=== PATIENT | male | born 1955 | race Caucasian/White ===

== ENCOUNTER 2023-07-12 09:59 | Emergency (ER) | payer OTHER ==
--- OUTSIDE RECORDS SUMMARY | 2023-07-12 10:03 | XMS REPORT | Continuity of Care Document ---
:1955 Author Organization [facility] t Address [address] [place] [address] Care Team Providers Name Role Phone Jeb Garcia Attending Clinician Unavailable UNKNOWN Attending Clinician Unavailable Hawa Britt Cardiology Attending Clinician Unavailable Jeb Garcia Admitting Clinician Unavailable Panchito Nunes Admitting Clinician Unavailable Payers Payer Name Policy Type Policy Number Effective Date Expiration Date S ource Problems This patient has no known problems. Allergies, Adverse Reactions, Alerts Allergy Allergy Status Severity Reaction(s) Onset Inactive Treating Comm ents Source Name Type Date Date Clinician Statins- DA Active U MUSCLE PAIN [facility] 07-02 [place] [facility] 00:00: Healthc e 00 are Inhibito [facility] Statins- DA Active [place] MUSCLE PAIN [facility] 06-29 [place] Reduct[facility] 00:00: [facility]c e 00 are [facility] Statins- DA Active U muscle ache [facility] 05-29 [place] Reductas 00:00: d e 00 [facility] Statins- DA Active U muscle ache [facility] 05-26 [place] Reduct[place] 00:00: d e 00 [facility] r Medications This patient has no known medications. Procedures Procedure Date / Time Performed Performing Clinician [facility] jocelynn [id number] 2023-07-01 00:00:00 PHIL [facility] [id number] 2023-07-01 00:00:00 PHIL [facility] [id number] 2023-07-01 00:00:00 POREY [facility] [id number] 2023-07-01 00:00:00 PHIL [facility] [id number] 2023-07-01 00:00:00 PHIL [facility] [id number] 2023-07-01 00:00:00 POREY [facility] [id number] 2023-07-01 00:00:00 PHIL [facility] [id number] 2023-07-01 00:00:00 PHIL [facility] [id number] 2023-07-[facility] Start End Encounter Admission Attending Care Care Encounter Source Date/Time Date/Time Type Type Clinicians Facility Department ID 2023-06-29 2023-07-07 Inpatient EL Jeb Garcia [facility] CARDIAC [id number] [facility] 09:47:00 14:28:00 18 [facility] 2023-06-29 2023-06-29 Outpatient Jeb Garcia [facility] REF [id number] [facility] 11:38:00 11:38:00 93 [facility] Results Test Description Test Time Test Comments Results Result Comments Source GLUBED 2023-07-07 11:20:00 Test Item Value Reference Range Interpretation Comme nts GLUBED (test code = GLUBED) 273 MG/DL 70-105 H [id number] 07:32:00 Test Item Value Reference Range Interpretation Comments GLUBED (test code = GLUBED) 169 MG/DL 70-105 H [id number] 17:33:00 Test Item Value Reference Range Interpretation Comments GLUBED (test code = GLUBED) 144 MG/DL 70-105 H [id number] 11:36:00 Test Item Value Reference Range Interpretation Comments GLUBED (test code = GLUBED) 203 MG/DL 70-105 H COMPREHENSIVE METABOLIC [id number] 10:52:00 Test Item Value Reference Range Interpretation Comments SODIUM (test code 136 mmol/L 136-145 N = NA) POTASSIUM (test 3.6 mmol/L 3.5-5.1 N code = K) CHLORIDE (test 101 mmol/l 98-107 N code = CL) CARBON DIOXIDE 29 mmol/L 20-31 N (test code = CO2) GLUCOSE (test code 227 mg/dL 74-106 H = GLU) BLOOD UREA 9 mg/dL 9-23 N NITROGEN (test code = BUN) GLOMERULAR >=60 max >60 The Glomerular FILTRATION RATE estimate mL/min Filtratio n Rate is a (test code = GFR) calculated parameterbased on serum Creatinin e, patient age and sex. GFR valuesless than 60 mL/min/1.73 square meters are brenda cative ofChronic Kidne y Disease. Values less than 15 mL/min/1.73squa re meters indicate Kidney failure. The calculation for GFR is based on the CK D-EPI (2020) calculat ion. This formulais race indifferent and is the recommended formula for GFR by the National Kidney Foundation for Adults.The GFR will not calculate i f the sex is unknown or if thepatient's ag e is <18 years. CREATININE (test 0.70 mg/dL 0.70-1.30 N code = CREAT) TOTAL PROTEIN 5.7 g/dL 5.7-8.2 N (test code = PROT) ALBUMIN (test code 3.9 g/dL 3.2-4.8 N = ALB) CALCIUM (test code 8.6 mg/dL 8.7-10.4 L = CA) BILIRUBIN TOTAL 0.4 mg/dL 0.3-1.2 N (test code = BILT) SGOT/AST (test 28 U/L <34 N code = AST) SGPT/ALT (test 23 U/L 10-49 N code = ALT) ALKALINE 77.0 U/L 46-116 N PHOSPHATASE (test code = ALKP) HGBA1C - GLYCOSYLATED [id number] 10:52:00 Test Item Value Reference Range Interpretation Comments GLYCOSYLATED HEMOGLOBIN 6.2 % <5.7 H Diab etic >/= (HA1C) (test code = 6.5%Pred iabetes GLYHGB) 5.7-6.4%Normal < 5.7% CBC W/AUTO [id number] 10:27:00 Test Item Value Reference Range Interpretation Comments WHITE BLOOD CELL (test code = 5.1 x10 3/uL 4.8-10.8 N WBC) RED BLOOD CELL (test code = 2.64 x10 6/uL 4.70-6.10 L RBC) HEMOGLOBIN (test code = HGB) 7.9 g/dL 14.0-18.0 L HEMATOCRIT (test code = HCT) 24.1 % 42.0-52.0 L MEAN CELL VOLUME (test code = 91.3 fL 80.0-94.0 N MCV) MEAN CELL HGB (test code = MCH) 29.9 pg 27-31 N MEAN CELL HGB CONCENTRATION 32.8 G/DL 33-36.5 L (test code = MCHC) RED CELL DISTRIBUTION WIDTH 13.6 % 12.9-16.9 N (test code = RDW) PLATELET COUNT (test code = 176 x10 3/uL 150-440 N PLT) MEAN PLATELET VOLUME (test code 10.4 fL 8.9-12.4 N = MPV) NEUTROPHIL % (test code = NT%) 66.7 % 42.2-75.2 N LYMPHOCYTE % (test code = LY%) 17.7 % 20.5-51.1 L MONOCYTE % (test code = MO%) 10.4 % 1.7-9.3 H EOSINOPHIL % (test code = EO%) 2.4 % 0.0-7.0 N BASOPHIL % (test code = BA%) 1.0 % 0-2.5 N NEUTROPHIL # (test code = NT#) 3.39 x10 3/uL 1.80-7.70 N LYMPHOCYTE # (test code = LY#) 0.90 x10 3/uL 1.00-4.80 L MONOCYTE # (test code = MO#) 0.53 x10 3/uL 0.00-0.80 N EOSINOPHIL # (test code = EO#) 0.12 x10 3/uL 0.00-0.45 N BASOPHIL # (test code = BA#) 0.05 x10 3/uL 0.0-0.20 N [id number] 21:06:00 Test Item Value Reference Range Interpretation Comments GLUBED (test code = GLUBED) 208 MG/DL 70-105 H [id number] 11:15:00 Test Item Value Reference Range Interpretation Comments GLUBED (test code = GLUBED) 182 MG/DL 70-105 H [id number] 08:00:00 Test Item Value Reference Range Interpretation Comments GLUBED (test code = GLUBED) 161 MG/DL 70-105 H - XR CHEST 1 [id number] 07:10:00 [facility] 1955 Sex: MPatient Name: ARIADNA MADRIGAL Unit No: [id number] EXAMS: CPT CODE: [id number] XR CHEST 1 V 50180 EXAM: Chest x-ray, 1 view Dictation location: A1 COMPARISON: Chest x-ray on 07/04/2023 INDICATION: PROTOCOL, aortic stenosis, coronary artery disease DISCUSSION: Prior median sternotomy and aortic valve replacement are noted. There is improving left retrocardiac consolidation and linear opacity at the medial right lung base. No pneumothorax is seen. There is a questionable small left pleural effusion, slightly improved. No pneumothorax is seen. No acute bony abnormalities are identified. IMPRESSION: 1. Improving left retrocardiac atelectasis or pneumonia. Linear atelectasis is seen at the right lung base. 2. Questionable small left pleural effusion, slightly improved. at 0710 Reported and signed by: Michael Ryan M.D. CC: Jeb Garcia MD; Terrence Cardoza MD Technologist: Javi Condon Time: DAP (Gy m2): Air Kerma (mGy): Trscr Dt/Tm: 07/05/2023 (0710) by:[email or web address] Printed Date/Time: 07/05/2023 (0712) Name: ARIADNA MADRIGAL [facility] Phys: Terrence Cole MD [address] : 1955 Age: 67 Sex: [place] [address] Loc: P.0307 1 Exam Date: 07/05/2023 Status: ADM IN PH: FAX: PAGE 1 Signed ReportCBC W/MANUAL [id number] 05:00:00 Test Item Value Reference Range Interpretation Comments WHITE BLOOD CELL 5.4 x10 3/uL 4.8-10.8 N (test code = WBC) RED BLOOD CELL (test 2.44 x10 6/uL 4.70-6.10 L code = RBC) HEMOGLOBIN (test 7.4 g/dL 14.0-18.0 L code = HGB) HEMATOCRIT (test 21.4 % 42.0-52.0 L code = HCT) MEAN CELL VOLUME 87.7 fL 80.0-94.0 N (test code = MCV) MEAN CELL HGB (test 30.3 pg 27-31 N code = MCH) MEAN CELL HGB 34.6 G/DL 33-36.5 N CONCENTRATION (test code = MCHC) RED CELL 13.4 % 12.9-16.9 N DISTRIBUTION WIDTH (test code = RDW) PLATELET COUNT (test 106 x10 3/uL 150-440 L code = PLT) MEAN PLATELET VOLUME 11.5 fL 8.9-12.4 N (test code = MPV) NEUTROPHIL % (test 67.4 % 42.2-75.2 N code = NT%) LYMPHOCYTE % (test 20.6 % 20.5-51.1 N code = LY%) MONOCYTE % (test 8.8 % 1.7-9.3 N code = MO%) EOSINOPHIL % (test 1.3 % 0.0-7.0 N code = EO%) BASOPHIL % (test 0.6 % 0-2.5 N code = BA%) NEUTROPHIL # (test 3.67 x10 3/uL 1.80-7.70 N code = NT#) LYMPHOCYTE # (test 1.12 x10 3/uL 1.00-4.80 N code = LY#) MONOCYTE # (test 0.48 x10 3/uL 0.00-0.80 N code = MO#) EOSINOPHIL # (test 0.07 x10 3/uL 0.00-0.45 N code = EO#) BASOPHIL # (test 0.03 x10 3/uL 0.0-0.20 N code = BA#) TOTAL CELLS COUNTED 100 #CELLS (test code = TCC) SEGMENTED 72 % 49-71 H `@MANUAL NEUTROPHILS (test DIFFERENTI AL code = SEG) PERFORMED LYMPHOCYTE (test 25 % 20-40 N code = LYMPH) MONOCYTE (test code 3 % 3-8 N = MON) PLATELET ESTIMATE SLIGHTLY ADEQUATE A (test code = PLTEST) DECREASED PLATELET MORPHOLOGY GIANT PLATELETS NORMAL (test code = PLTMORPH) DIFFERENTIAL [id number] 05:00:00 Test Item Value Reference Range Interpretation Comments RBC MORPHOLOGY REQUIRED (test code = NORMAL RBCM) BASIC METABOLIC [id number] 04:19:00 Test Item Value Reference Range Interpretation Comments SODIUM (test code 135 mmol/L 136-145 L = NA) POTASSIUM (test 4.0 mmol/L 3.5-5.1 N code = K) CHLORIDE (test 101 mmol/l 98-107 N code = CL) CARBON DIOXIDE 28 mmol/L 20-31 N (test code = CO2) GLUCOSE (test code 136 mg/dL 74-106 H = GLU) BLOOD UREA 8 mg/dL 9-23 L NITROGEN (test code = BUN) GLOMERULAR >=60 max >60 The Glomerular FILTRATION RATE estimate mL/min Filtratio n Rate is a (test code = GFR) calculated parameterbased on serum Creatinin e, patient age and sex. GFR valuesless than 60 mL/min/1.73 square meters are brenda cative ofChronic Kidne y Disease. Values less than 15 mL/min/1.73squa re meters indicate Kidney failure. The calculation for GFR is based on the CK D-EPI (2020) calculat ion. This formulais race indifferent and is the recommended formula for GFR by the National Kidney Foundation for Adults.The GFR will not calculate i f the sex is unknown or if thepatient's ag e is <18 years. CREATININE (test 0.40 mg/dL 0.70-1.30 L code = CREAT) CALCIUM (test code 8.3 mg/dL 8.7-10.4 L = CA) [id number] 04:19:00 Test Item Value Reference Range Interpretation Comments PHOSPHOROUS (test code = PHOS) 2.5 mg/dL 2.4-5.1 N [id number] 04:19:00 Test Item Value Reference Range Interpretation Comments MAGNESIUM (test code = MAG) 1.9 mg/dL 1.6-2.6 N VENOUS BLOOD [id number] 00:55:00 Test Item Value Reference Range Interpretation Comments VENOUS BLOOD GAS PH 7.34 7.35-7.45 L (test code = PHV) VENOUS BLOOD GAS 49.2 mmHg See_Comment [Automated message] The PCO2 (test code = system [facility] generated PCO2V) this result tra nsmitted reference range : 46. The reference range was not used to interpr et this result as normal/abnormal . VENOUS BLOOD GAS 21.2 mmHg See_Comment [Automated message] The PO2 (test code = system [facility] generated PO2V) this result tra nsmitted reference range : 40. The reference range was not used to interpr et this result as normal/abnormal . VBG HCO3 (test code 26 meq/L = HCO3V) VBG BASE EXCESS 0.0 MMOL/L (test code = YARELY) VENOUS BLOOD GAS O2 32 % See_Comment [Automa arik message] The SAT (test code = system [facility] generated O2SATV) this result tra nsmitted reference range : 75. The reference range was not used to interpr et this result as normal/abnormal . VENOUS BLOOD GAS Venous TYPE (test code = TYPEV) VENOUS BLOOD GAS 32.0 % FIO2 (test code = FIO2V) VBG VENT MODE (test 2 L NC code = MODEV) [id number] 21:06:00 Test Item Value Reference Range Interpretation Comments GLUBED (test code = GLUBED) 216 MG/DL 70-105 H [id number] 17:45:00 Test Item Value Reference Range Interpretation Comments GLUBED (test code = GLUBED) 155 MG/DL 70-105 H [id number] 12:08:00 Test Item Value Reference Range Interpretation Comments GLUBED (test code = GLUBED) 205 MG/DL 70-105 H [id number] 08:53:00 Test Item Value Reference Range Interpretation Comments GLUBED (test code = GLUBED) 241 MG/DL 70-105 H - XR CHEST 1 [id number] 07:14:00 [facility] 1955 Sex: MPatient Name: ARIADNA MADRIGAL Unit No: [id number] EXAMS: CPT CODE: [id number] XR CHEST 1 V 24599 EXAM: Chest x-ray, 1 view Dictation location: A1 COMPARISON: Chest x-ray on 07/03/2023 INDICATION:PROTOCOL, aortic stenosis, coronary artery disease DISCUSSION: There has been previous median sternotomy and aortic valve replacement. Left greater than right bibasilar consolidation appears similar. A small left pleural effusion appears increased. Chest tubes have been removed. No pneumothorax is seen. The cardiac silhouette is within normal limits. No acute bony abnormalities are identified. IMPRESSION: Interval removal of chest tubes. Left greater than right bibasilar consolidation appears similar and suggests atelectasis or less likely pneumonia. A small left pleural effusion appears increased. at 0714 Reported and signed by: Michael Ryan M.D. CC: Jeb Garcia MD; Terrence Cardoza MD Technologist: Javi Condon Time: DAP (Gy m2): Air Kerma (mGy): Trscr Dt/Tm: 07/04/2023 (0714) by:[email or web address] Printed Date/Time: 07/04/2023 (0768) Name: ARIADNA MADRIGAL [facility] Phys: Terrence Cole MD [address] :1955 Age: 67 Sex: [place] [address] Loc: P.0307 1 Exam Date: 07/04/2023 Status: ADM IN PH: FAX: PAGE 1 Signed ReportCOMPREHENSIVE METABOLIC [id number] 05:09:00 Test Item Value Reference Range Interpretation Comments SODIUM (test code 132 mmol/L 136-145 L = NA) POTASSIUM (test 4.5 mmol/L 3.5-5.1 N code = K) CHLORIDE (test 101 mmol/l 98-107 N code = CL) CARBON DIOXIDE 28 mmol/L 20-31 N (test code = CO2) GLUCOSE (test code 182 mg/dL 74-106 H = GLU) BLOOD UREA 6 mg/dL 9-23 L NITROGEN (test code = BUN) GLOMERULAR >=60 max >60 The Glomerular FILTRATION RATE estimate mL/min Filtratio n Rate is a (test code = GFR) calculated parameterbased on serum Creatinin e, patient age and sex. GFR valuesless than 60 mL/min/1.73 square meters are brenda cative ofChronic Kidne y Disease. Values less than 15 mL/min/1.73squa re meters indicate Kidney failure. The calculation for GFR is based on the CK D-EPI (2020) calculat ion. This formulais race indifferent and is the recommended formula for GFR by the National Kidney Foundation for Adults.The GFR will not calculate i f the sex is unknown or if thepatient's ag e is <18 years. CREATININE (test 0.60 mg/dL 0.70-1.30 L code = CREAT) TOTAL PROTEIN 5.9 g/dL 5.7-8.2 N (test code = PROT) ALBUMIN (test code 3.9 g/dL 3.2-4.8 N = ALB) CALCIUM (test code 8.1 mg/dL 8.7-10.4 L = CA) BILIRUBIN TOTAL 0.4 mg/dL 0.3-1.2 N (test code = BILT) SGOT/AST (test 38 U/L <34 H code = AST) SGPT/ALT (test 24 U/L 10-49 N code = ALT) ALKALINE 59.0 U/L 46-116 N PHOSPHATASE (test code = ALKP) [id number] 05:09:00 Test Item Value Reference Range Interpretation Comments PHOSPHOROUS (test code = PHOS) 2.7 mg/dL 2.4-5.1 N [id number] 05:09:00 Test Item Value Reference Range Interpretation Comments MAGNESIUM (test code = MAG) 2.0 mg/dL 1.6-2.6 N CBC W/AUTO [id number] 04:48:00 Test Item Value Reference Range Interpretation Comments WHITE BLOOD CELL (test code = 7.3 x10 3/uL 4.8-10.8 N WBC) RED BLOOD CELL (test code = 2.40 x10 6/uL 4.70-6.10 L RBC) HEMOGLOBIN (test code = HGB) 7.4 g/dL 14.0-18.0 L HEMATOCRIT (test code = HCT) 21.8 % 42.0-52.0 L MEAN CELL VOLUME (test code = 90.8 fL 80.0-94.0 N MCV) MEAN CELL HGB (test code = MCH) 30.8 pg 27-31 N MEAN CELL HGB CONCENTRATION 33.9 G/DL 33-36.5 N (test code = MCHC) RED CELL DISTRIBUTION WIDTH 13.3 % 12.9-16.9 N (test code = RDW) PLATELET COUNT (test code = 103 x10 3/uL 150-440 L PLT) MEAN PLATELET VOLUME (test code 10.9 fL 8.9-12.4 N = MPV) NEUTROPHIL % (test code = NT%) 71.0 % 42.2-75.2 N LYMPHOCYTE % (test code = LY%) 21.1 % 20.5-51.1 N MONOCYTE % (test code = MO%) 6.3 % 1.7-9.3 N EOSINOPHIL % (test code = EO%) 0.5 % 0.0-7.0 N BASOPHIL % (test code = BA%) 0.4 % 0-2.5 N NEUTROPHIL # (test code = NT#) 5.21 x10 3/uL 1.80-7.70 N LYMPHOCYTE # (test code = LY#) 1.55 x10 3/uL 1.00-4.80 N MONOCYTE # (test code = MO#) 0.46 x10 3/uL 0.00-0.80 N EOSINOPHIL # (test code = EO#) 0.04 x10 3/uL 0.00-0.45 N BASOPHIL # (test code = BA#) 0.03 x10 3/uL 0.0-0.20 N BASIC METABOLIC [id number] 22:46:00 Test Item Value Reference Range Interpretation Comments SODIUM (test code 131 mmol/L 136-145 L = NA) POTASSIUM (test 4.2 mmol/L 3.5-5.1 N code = K) CHLORIDE (test 99 mmol/l 98-107 N code = CL) CARBON DIOXIDE 27 mmol/L 20-31 N (test code = CO2) GLUCOSE (test code 169 mg/dL 74-106 H = GLU) BLOOD UREA 7 mg/dL 9-23 L NITROGEN (test code = BUN) GLOMERULAR >=60 max >60 The Glomerular FILTRATION RATE estimate mL/min Filtratio n Rate is a (test code = GFR) calculated parameterbased on serum Creatinin e, patient age and sex. GFR valuesless than 60 mL/min/1.73 square meters are brenda cative ofChronic Kidne y Disease. Values less than 15 mL/min/1.73squa re meters indicate Kidney failure. The calculation for GFR is based on the CK D-EPI (2020) calculat ion. This formulais race indifferent and is the recommended formula for GFR by the National Kidney Foundation for Adults.The GFR will not calculate i f the sex is unknown or if thepatient's ag e is <18 years. CREATININE (test 0.60 mg/dL 0.70-1.30 L code = CREAT) CALCIUM (test code 8.3 mg/dL 8.7-10.4 L = CA) CBC W/AUTO [id number] 19:00:00 Test Item Value Reference Range Interpretation Comments WHITE BLOOD CELL (test code = 9.9 x10 3/uL 4.8-10.8 N WBC) RED BLOOD CELL (test code = 2.46 x10 6/uL 4.70-6.10 L RBC) HEMOGLOBIN (test code = HGB) 7.5 g/dL 14.0-18.0 L HEMATOCRIT (test code = HCT) 22.3 % 42.0-52.0 L MEAN CELL VOLUME (test code = 90.7 fL 80.0-94.0 N MCV) MEAN CELL HGB (test code = MCH) 30.5 pg 27-31 N MEAN CELL HGB CONCENTRATION 33.6 G/DL 33-36.5 N (test code = MCHC) RED CELL DISTRIBUTION WIDTH 13.4 % 12.9-16.9 N (test code = RDW) PLATELET COUNT (test code = 101 x10 3/uL 150-440 L PLT) MEAN PLATELET VOLUME (test code 11.0 fL 8.9-12.4 N = MPV) NEUTROPHIL % (test code = NT%) 76.9 % 42.2-75.2 H LYMPHOCYTE % (test code = LY%) 15.5 % 20.5-51.1 L MONOCYTE % (test code = MO%) 6.4 % 1.7-9.3 N EOSINOPHIL % (test code = EO%) 0.4 % 0.0-7.0 N BASOPHIL % (test code = BA%) 0.3 % 0-2.5 N NEUTROPHIL # (test code = NT#) 7.61 x10 3/uL 1.80-7.70 N LYMPHOCYTE # (test code = LY#) 1.53 x10 3/uL 1.00-4.80 N MONOCYTE # (test code = MO#) 0.63 x10 3/uL 0.00-0.80 N EOSINOPHIL # (test code = EO#) 0.04 x10 3/uL 0.00-0.45 N BASOPHIL # (test code = BA#) 0.03 x10 3/uL 0.0-0.20 N CLOTTED CALLED TO VIMAL CERDA @1825 ON 17-14-30BCGCC METABOLIC [id number] 18:51:00 Test Item Value Reference Range Interpretation Comments SODIUM (test code 127 mmol/L 136-145 L = NA) POTASSIUM (test 4.9 mmol/L 3.5-5.1 N code = K) CHLORIDE (test 98 mmol/l 98-107 N code = CL) CARBON DIOXIDE 26 mmol/L 20-31 N (test code = CO2) GLUCOSE (test code 138 mg/dL 74-106 H = GLU) BLOOD UREA 6 mg/dL 9-23 L NITROGEN (test code = BUN) GLOMERULAR >=60 max >60 The Glomerular FILTRATION RATE estimate mL/min Filtratio n Rate is a (test code = GFR) calculated parameterbased on serum Creatinin e, patient age and sex. GFR valuesless than 60 mL/min/1.73 square meters are brenda cative ofChronic Kidne y Disease. Values less than 15 mL/min/1.73squa re meters indicate Kidney failure. The calculation for GFR is based on the CK D-EPI (2020) calculat ion. This formulais race indifferent and is the recommended formula for GFR by the National Kidney Foundation for Adults.The GFR will not calculate i f the sex is unknown or if thepatient's ag e is <18 years. CREATININE (test 0.50 mg/dL 0.70-1.30 L code = CREAT) CALCIUM (test code 7.7 mg/dL 8.7-10.4 L = CA) [id number] 18:51:00 Test Item Value Reference Range Interpretation Comments PHOSPHOROUS (test code = PHOS) 2.2 mg/dL 2.4-5.1 L [id number] 18:51:00 Test Item Value Reference Range Interpretation Comments MAGNESIUM (test code = MAG) 1.9 mg/dL 1.6-2.6 N [id number] 17:40:00 Test Item Value Reference Range Interpretation Comments GLUBED (test code = GLUBED) 148 MG/DL 70-105 H [id number] 13:59:00 Test Item Value Reference Range Interpretation Comments SURGICAL (test code = SR) RUN DATE: 07/03/23 [facility] - LAB PAGE 1 RUN TIME: 1359 Specimen Inquiry RUN USER: INTERFACE NAHUN ENT: ARIADNA MADRIGAL TIMBO LOC: Starla Bloom U #: [id number] AGE/SX: 67/M ROOM: [facility] RE06/29/23REG DR: Jeb Garcia MD : 53 BED: 1 DIS: STATUS: ADM IN TLOC: SPEC #: [id number] RECD: 07/01/23 STATUS: ROSIO REQ #: [id number] LILO: 07/01/23-[address]: Jeb Garcia MD ENTERED: 07/01/23 SP TYPE: SURGICAL OTHR DR: DOES_NOT KNOW Mark Boateng MDORDERED: 16258/2, 92617, ANATOMIC SPEC HISTOLOGY: TISSUE ID BLK PCS ESME LEV / PROCEDURE DISPOSITION ____ ___ ___ ___ ___ AOR A 2 1 AOR B 1 1 TISSUES: A. AORTA - Aorta B. AORTA - Aortic Valve Leaflets FINAL DIAGNOSIS A. AORTA, EXCISION: - Vascular tissue with degenerative changes - Cholesterol clefts and changes consistent with early atheroscleroses B. AORTIC VALVE LEAFLETS, EXCISION: - Degenerative fibrous tissue with calcific atherosclerotic plaques GROSS DESCRIPTION A. Received in formalin in a container labeled Ariadna Madrigal and also" aorta" are multiplefragments of yellow-ojeda vascular tissue, the largest of which is 12 x 5 x 0.3 cm. Senior Marketing Manager sections are submitted in cassettes A 1 and A2. B. Received in formalin container labeled Ariadna Madrigal and also "aortic valve leaflets" aremultiple fragments of white and yellow-ojeda partially calcified valvular tissue, measuringin aggregate 5 x 4.3 x 1.5 cm. Senior Marketing Manager sections are submitted cassette B afterdecalcification. AW Technical component performed at [facility], [place], [address] Immunohistochemistry: This test was developed and its performancecharacteristics determined by this laboratory. It has not been approved nordoes it need approval by the [place] FDA. Appropriate positive and negative controlsare reviewed and judged to be acceptable. This laboratory is certified underthe Clinical Laboratory Improvement Amendments (CLIA-88) as qualified to CONTINUED ON NEXT PAGE RUN DATE: 07/03/23 [facility] - LAB PAGE 2 RUN TIME: 1359 Specimen Inquiry RUN USER: INTERFACE SPEC #: [id number] PATIENT: ARIADNA MADRIGAL #[id number] (Continued) ------- GROSS DESCRIPTION (Continued) perform high complexity clinical laboratory testing. MICROSCOPIC DESCRIPTION Unless gross only, the diagnosis is based upon microscopic examination. CLINICAL INFORMATION Coronary Artery Disease Signed SIGNATURE ON FILE Mónica Toledo 07/03/23 1359 END OF REPORT [id number] 12:30:00 Test Item Value Reference Range Interpretation Comments GLUBED (test code = GLUBED) 194 MG/DL 70-105 H [id number] 09:06:00 Test Item Value Reference Range Interpretation Comments GLUBED (test code = GLUBED) 156 MG/DL 70-105 H - XR CHEST 1 [id number] 09:06:00 [facility] 1955 Sex: MPatient Name: ARIADNA MADRIGAL Unit No: [id number] EXAMS: CPT CODE: [id number] XR CHEST 1 V [id number] EXAM: XR Chest 1 View INDICATION: ICU PROTOCOL LOCATION: A1 COMPARISON: Chest radiograph dated 06/24/2023 TECHNIQUE: Frontal view of the chest was obtained. FINDINGS: Pulmonary arterial catheter has been removed. Other life support lines and tubes are in unchanged position. Pulmonary vascular congestion is similar to prior. There is no pleural effusion or pneumothorax. The cardiomediastinal silhouette is unchanged. No acute osseous abnormality is identified. IMPRESSION: Interval removal of pulmonary arterial catheter, otherwise unchanged radiograph. at 0906 Reported and signed by: PEEWEE AMBROSE M.D. CC: Annette Andre MD; Jeb Garcia MD Technologist: Javi Condon Time: DAP (Gy m2): Air Kerma (mGy): Trscr Dt/Tm: 07/03/2023 (09) by:[email or web address] Printed Date/Time: 07/03/2023 (0909) Name: DENISAARIADNA IZQUIERDO [facility] Phys: Annette Looney [address] : 1955 Age: 67 Sex: [place] [address] Loc: [phone] 1 Exam Date: 07/03/2023 Status: ADM IN PH: FAX: PAGE 1 Signed ReportBASIC METABOLIC [id number] 03:59:00 Test Item Value Reference Range Interpretation Comments SODIUM (test code 131 mmol/L 136-145 L = NA) POTASSIUM (test 4.4 mmol/L 3.5-5.1 N code = K) CHLORIDE (test 102 mmol/l 98-107 N code = CL) CARBON DIOXIDE 23 mmol/L 20-31 N (test code = CO2) GLUCOSE (test code 140 mg/dL 74-106 H = GLU) BLOOD UREA 6 mg/dL 9-23 L NITROGEN (test code = BUN) GLOMERULAR >=60 max >60 The Glomerular FILTRATION RATE estimate mL/min Filtratio n Rate is a (test code = GFR) calculated parameterbased on serum Creatinin e, patient age and sex. GFR valuesless than 60 mL/min/1.73 square meters are brenda cative ofChronic Kidne y Disease. Values less than 15 mL/min/1.73squa re meters indicate Kidney failure. The calculation for GFR is based on the CK D-EPI (2020) calculat ion. This formulais race indifferent and is the recommended formula for GFR by the National Kidney Foundation for Adults.The GFR will not calculate i f the sex is unknown or if thepatient's ag e is <18 years. CREATININE (test 0.50 mg/dL 0.70-1.30 L code = CREAT) CALCIUM (test code 7.7 mg/dL 8.7-10.4 L = CA) [id number] 03:59:00 Test Item Value Reference Range Interpretation Comments PHOSPHOROUS (test code = PHOS) 2.0 mg/dL 2.4-5.1 L [id number] 03:59:00 Test Item Value Reference Range Interpretation Comments MAGNESIUM (test code = MAG) 2.0 mg/dL 1.6-2.6 N PROTHROMBIN [id number] 03:44:00 Test Item Value Reference Range Interpretation Comments PROTHROMBIN TIME 13.9 SECONDS 10.3-12.9 H PATIENT (test code = PTP) INTERNATIONAL NORMAL 1.18 0.9-1.11 H INR go als are RATIO (test code = individua lized based INR) on patient specificfactors . The following are o nly general guideli jeny: Indications: IN R Goal:1. Treatme nt of venous thromboembolism and 2.0 - 3.0 syste [place] anticoagulation in a variety of conditions, inc luding atrial fibrilla tion and mechanical heart valves 2. Mecha nical mitral and tric uspid valves, 2.5 - 3 .5 systemic anticoagulation for high-risk condi tions THROMBOPLASTIN TIME [id number] 03:44:00 Test Item Value Reference Range Interpretation Comments THROMBOPLASTIN TIME 28.4 SECONDS 23.8-34.8 N INTERPRE TATIVE PARTIAL (test code = DATA: erapeutic PTT) range: Unfractionated heparin:55 - 80 seconds Argatroban:1.5 to 3 times the basel ine PTT CBC W/AUTO [id number] 03:36:00 Test Item Value Reference Range Interpretation Comments WHITE BLOOD CELL (test code = 11.2 x10 3/uL 4.8-10.8 H WBC) RED BLOOD CELL (test code = 2.40 x10 6/uL 4.70-6.10 L RBC) HEMOGLOBIN (test code = HGB) 7.3 g/dL 14.0-18.0 L HEMATOCRIT (test code = HCT) 21.3 % 42.0-52.0 L MEAN CELL VOLUME (test code = 88.8 fL 80.0-94.0 N MCV) MEAN CELL HGB (test code = MCH) 30.4 pg 27-31 N MEAN CELL HGB CONCENTRATION 34.3 G/DL 33-36.5 N (test code = MCHC) RED CELL DISTRIBUTION WIDTH 13.8 % 12.9-16.9 N (test code = RDW) PLATELET COUNT (test code = 97 x10 3/uL 150-440 L PLT) MEAN PLATELET VOLUME (test code 11.6 fL 8.9-12.4 N = MPV) NEUTROPHIL % (test code = NT%) 79.9 % 42.2-75.2 H LYMPHOCYTE % (test code = LY%) 11.8 % 20.5-51.1 L MONOCYTE % (test code = MO%) 7.5 % 1.7-9.3 N EOSINOPHIL % (test code = EO%) 0.2 % 0.0-7.0 N BASOPHIL % (test code = BA%) 0.2 % 0-2.5 N NEUTROPHIL # (test code = NT#) 8.92 x10 3/uL 1.80-7.70 H LYMPHOCYTE # (test code = LY#) 1.32 x10 3/uL 1.00-4.80 N MONOCYTE # (test code = MO#) 0.84 x10 3/uL 0.00-0.80 H EOSINOPHIL # (test code = EO#) 0.02 x10 3/uL 0.00-0.45 N BASOPHIL # (test code = BA#) 0.02 x10 3/uL 0.0-0.20 N BASIC METABOLIC [id number] 18:22:00 Test Item Value Reference Range Interpretation Comments SODIUM (test code 131 mmol/L 136-145 L = NA) POTASSIUM (test 4.7 mmol/L 3.5-5.1 code = K) CHLORIDE (test 102 mmol/l 98-107 N code = CL) CARBON DIOXIDE 23 mmol/L 20-31 N (test code = CO2) GLUCOSE (test code 182 mg/dL 74-106 H = GLU) BLOOD UREA 8 mg/dL 9-23 L NITROGEN (test code = BUN) GLOMERULAR >=60 max >60 The Glomerular FILTRATION RATE estimate mL/min Filtratio n Rate is a (test code = GFR) calculated parameterbased on serum Creatinin e, patient age and sex. GFR valuesless than 60 mL/min/1.73 square meters are brenda cative ofChronic Kidne y Disease. Values less than 15 mL/min/1.73squa re meters indicate Kidney failure. The calculation for GFR is based on the CK D-EPI (2020) calculat ion. This formulais race indifferent and is the recommended formula for GFR by the National Kidney Foundation for Adults.The GFR will not calculate i f the sex is unknown or if thepatient's ag e is <18 years. CREATININE (test 0.60 mg/dL 0.70-1.30 L code = CREAT) CALCIUM (test code 8.0 mg/dL 8.7-10.4 L = CA) [id number] 18:22:00 Test Item Value Reference Range Interpretation Comments PHOSPHOROUS (test code = PHOS) 2.4 mg/dL 2.4-5.1 N [id number] 18:22:00 Test Item Value Reference Range Interpretation Comments MAGNESIUM (test code = MAG) 2.5 mg/dL 1.6-2.6 N [id number] 17:42:00 Test Item Value Reference Range Interpretation Comments GLUBED (test code = GLUBED) 184 MG/DL 70-105 H [id number] 12:10:00 Test Item Value Reference Range Interpretation Comments GLUBED (test code = GLUBED) 177 MG/DL 70-105 H - XR CHEST 1 [id number] 09:02:00 [facility] : 1955 Sex: MPatient Name: ARIADNA MADRIGAL Unit No: [id number] EXAMS: CPT CODE: [id number] XR CHEST 1 V [id number] EXAM: XR Chest 1 View INDICATION: Cardiac Surgery Postop LOCATION: A1 COMPARISON: Chest radiographdated 07/01/2023 TECHNIQUE: Frontal view of the chest was obtained. FINDINGS: Endotracheal tube has been removed. Other life support lines and tubes are in unchanged position. Pulmonary vascular congestion is similar to prior. There is no pleural effusion or pneumothorax. The cardiomediastinal silhouette is unchanged. No acute osseous abnormality is identified. IMPRESSION: Interval removal of endotracheal tube. Otherwise unchanged radiograph. at 0902 Reported and signed by: PEEWEE AMBROSE M.D. CC: Hawk Vidal MD; Jeb Garcia MD Technologist: BRANDON QURESHI (R) Fluoro Time: DAP (Gy m2): Air Kerma (mGy): Trscr Dt/Tm: 07/02/2023 (09) by:[email or web address] Printed Date/Time: 07/02/2023 (904) Name: ARIADNA MADRIGAL [facility] Phys: Hawk Magaña MD [address] : 1955 Age: 67 Sex: [place] [address] Loc: P.0307 1 Exam Date: 07/02/2023 Status: ADM IN PH: FAX: PAGE 1 Signed [id number] 08:26:00 Test Item Value Reference Range Interpretation Comments GLUBED (test code = GLUBED) 180 MG/DL 70-105 H [id number] 06:57:00 Test Item Value Reference Range Interpretation Comments GLUBED (test code = GLUBED) 180 MG/DL 70-105 H BASIC METABOLIC [id number] 05:30:00 Test Item Value Reference Range Interpretation Comments SODIUM (test code 137 mmol/L 136-145 N = NA) POTASSIUM (test 3.7 mmol/L 3.5-5.1 N code = K) CHLORIDE (test 106 mmol/l 98-107 N code = CL) CARBON DIOXIDE 23 mmol/L 20-31 N (test code = CO2) GLUCOSE (test code 147 mg/dL 74-106 H = GLU) BLOOD UREA 7 mg/dL 9-23 L NITROGEN (test code = BUN) GLOMERULAR >=60 max >60 The Glomerular FILTRATION RATE estimate mL/min Filtratio n Rate is a (test code = GFR) calculated parameterbased on serum Creatinin e, patient age and sex. GFR valuesless than 60 mL/min/1.73 square meters are brenda cative ofChronic Kidne y Disease. Values less than 15 mL/min/1.73squa re meters indicate Kidney failure. The calculation for GFR is based on the CK D-EPI (2020) calculat ion. This formulais race indifferent and is the recommended formula for GFR by the National Kidney Foundation for Adults.The GFR will not calculate i f the sex is unknown or if thepatient's ag e is <18 years. CREATININE (test 0.60 mg/dL 0.70-1.30 L code = CREAT) CALCIUM (test code 7.9 mg/dL 8.7-10.4 L = CA) LIVER FUNCTION [id number] 05:30:00 Test Item Value Reference Range Interpretation Comments TOTAL PROTEIN (test code = PROT) 5.2 g/dL 5.7-8.2 L ALBUMIN (test code = ALB) 3.6 g/dL 3.2-4.8 N BILIRUBIN TOTAL (test code = BILT) 0.4 mg/dL 0.3-1.2 N BILIRUBIN DIRECT (test code = BILD) 0.2 mg/dL <0.3 N SGOT/AST (test code = AST) 52 U/L <34 H SGPT/ALT (test code = ALT) 18 U/L 10-49 N ALKALINE PHOSPHATASE (test code = 50.0 U/L 46-116 N ALKP) [id number] 05:30:00 Test Item Value Reference Range Interpretation Comments MAGNESIUM (test code = MAG) 1.8 mg/dL 1.6-2.6 N [id number] 05:14:00 Test Item Value Reference Range Interpretation Comments GLUBED (test code = GLUBED) 149 MG/DL 70-105 H CBC W/AUTO [id number] 05:11:00 Test Item Value Reference Range Interpretation Comments WHITE BLOOD CELL (test code = 8.7 x10 3/uL 4.8-10.8 N WBC) RED BLOOD CELL (test code = 2.72 x10 6/uL 4.70-6.10 L RBC) HEMOGLOBIN (test code = HGB) 8.5 g/dL 14.0-18.0 L HEMATOCRIT (test code = HCT) 24.2 % 42.0-52.0 L MEAN CELL VOLUME (test code = 89.0 fL 80.0-94.0 N MCV) MEAN CELL HGB (test code = MCH) 31.3 pg 27-31 H MEAN CELL HGB CONCENTRATION 35.1 G/DL 33-36.5 N (test code = MCHC) RED CELL DISTRIBUTION WIDTH 13.6 % 12.9-16.9 N (test code = RDW) PLATELET COUNT (test code = 110 x10 3/uL 150-440 L PLT) MEAN PLATELET VOLUME (test code 11.0 fL 8.9-12.4 N = MPV) NEUTROPHIL % (test code = NT%) 86.9 % 42.2-75.2 H LYMPHOCYTE % (test code = LY%) 6.2 % 20.5-51.1 L MONOCYTE % (test code = MO%) 6.3 % 1.7-9.3 N EOSINOPHIL % (test code = EO%) 0.0 % 0.0-7.0 N BASOPHIL % (test code = BA%) 0.1 % 0-2.5 N NEUTROPHIL # (test code = NT#) 7.56 x10 3/uL 1.80-7.70 N LYMPHOCYTE # (test code = LY#) 0.54 x10 3/uL 1.00-4.80 L MONOCYTE # (test code = MO#) 0.55 x10 3/uL 0.00-0.80 N EOSINOPHIL # (test code = EO#) 0.00 x10 3/uL 0.00-0.45 N BASOPHIL # (test code = BA#) 0.01 x10 3/uL 0.0-0.20 N BLOOD GAS [id number] 05:09:00 Test Item Value Reference Range Interpretation Comments ARTERIAL BLOOD GAS PH 7.40 7.35-7.45 N (test code = PHA) ARTERIAL BLOOD GAS PCO2 37.6 mmHg 35.0-45.0 N (test code = PCO2A) ARTERIAL BLOOD GAS PO2 88.3 mmHg 80.0-95.0 N (test code = PO2A) BICARBONATE TOTAL HCO3 23.0 mmol/L 22.0-24.0 N (test code = HCO3) BASE EXCESS (test code -1.5 mmol/L See_Comment N [Aut omated = PAUL) message] The system which generated this result transmitted reference range : (+/-)2.0. The reference range was not used to interpret this result as normal/abnormal . ABG O2 SATURATION (test 96.6 % 95.0-100.0 N code = SATA) ARTERIAL FIO2 (test 32.0 % code = FIO2A) ABG VENT MODE (test NASAL CANNULA code = MODEA) ALLENS TEST (test code NOT APPLICABLE = ALLENS) SODIUM (POC) (test code 131 mmol/L 135-147 L = NA/ABG) POTASSIUM (POC) (test 3.59 mmol/L 3.6-5.2 L code = K/ABG) CHLORIDE (ARTERIAL) 102 mmol/L 98-108 N (test code = CL/ABG) GLUCOSE (test code = 151 mg/dL 70-104 H GLU/ABG) IONIZED CALCIUM (test 1.19 mmol/L 1.12-1.32 N code = CAIABG) POC LACTIC ACID (test 1.25 mmol/L 0.5-2.2 N code = POCLAC) TOTAL HGB (test code = 9.2 g/dL 13.0-17.0 L THB) OXYHEMOGLOBIN (test 96.0 % 92.0-98.0 N code = OOHGBT) CARBOXYHEMOGLOBIN (test 0.3 % 0-5.0 N code = HOHGBT) METHEMOGLOBIN (test <0.8 % 0-1.5 N code = METHGB) HHb (test code = HHB) 3.4 % TCO2 ARTERIAL (test 24.1 MMOL/L 24-30 N code = TCO2A) [id number] 04:05:00 Test Item Value Reference Range Interpretation Comments GLUBED (test code = GLUBED) 122 MG/DL 70-105 H [id number] 03:09:00 Test Item Value Reference Range Interpretation Comments GLUBED (test code = GLUBED) 97 MG/DL 70-105 N [id number] 02:10:00 Test Item Value Reference Range Interpretation Comments GLUBED (test code = GLUBED) 97 MG/DL 70-105 N [id number] 01:09:00 Test Item Value Reference Range Interpretation Comments GLUBED (test code = GLUBED) 101 MG/DL 70-105 N [id number] 00:09:00 Test Item Value Reference Range Interpretation Comments GLUBED (test code = GLUBED) 132 MG/DL 70-105 H [id number] 23:12:00 Test Item Value Reference Range Interpretation Comments GLUBED (test code = GLUBED) 142 MG/DL 70-105 H [id number] 22:25:00 Test Item Value Reference Range Interpretation Comments GLUBED (test code = GLUBED) 161 MG/DL 70-105 H [id number] 21:10:00 Test Item Value Reference Range Interpretation Comments GLUBED (test code = GLUBED) 122 MG/DL 70-105 H BLOOD GAS [id number] 20:35:00 Test Item Value Reference Range Interpretation Comments ARTERIAL BLOOD GAS PH 7.40 7.35-7.45 N (test code = PHA) ARTERIAL BLOOD GAS PCO2 36.6 mmHg 35.0-45.0 N (test code = PCO2A) ARTERIAL BLOOD GAS PO2 83.4 mmHg 80.0-95.0 N (test code = PO2A) BICARBONATE TOTAL HCO3 22.2 mmol/L 22.0-24.0 N (test code = HCO3) BASE EXCESS (test code -2.2 mmol/L See_Comment L [Aut omated = PAUL) message] The system which generated this result transmitted reference range : (+/-)2.0. The reference range was not used to interpret this result as normal/abnormal . ABG O2 SATURATION (test 95.5 % 95.0-100.0 N code = SATA) ARTERIAL FIO2 (test 32.0 % code = FIO2A) ABG VENT MODE (test NASAL CANNULA code = MODEA) ALLENS TEST (test code NOT APPLICABLE = ALLENS) SODIUM (POC) (test code 138 mmol/L 135-147 N = NA/ABG) POTASSIUM (POC) (test 3.79 mmol/L 3.6-5.2 N code = K/ABG) CHLORIDE (ARTERIAL) 106 mmol/L 98-108 N (test code = CL/ABG) GLUCOSE (test code = 136 mg/dL 70-104 H GLU/ABG) IONIZED CALCIUM (test 1.15 mmol/L 1.12-1.32 N code = CAIABG) POC LACTIC ACID (test 2.83 mmol/L 0.5-2.2 H code = POCLAC) TOTAL HGB (test code = 10.4 g/dL 13.0-17.0 L THB) OXYHEMOGLOBIN (test 94.9 % 92.0-98.0 N code = OOHGBT) CARBOXYHEMOGLOBIN (test 0.3 % 0-5.0 N code = HOHGBT) METHEMOGLOBIN (test <0.8 % 0-1.5 N code = METHGB) HHb (test code = HHB) 4.5 % TCO2 ARTERIAL (test 23.3 MMOL/L 24-30 L code = TCO2A) [id number] 20:07:00 Test Item Value Reference Range Interpretation Comments GLUBED (test code = GLUBED) 144 MG/DL 70-105 H BLOOD GAS [id number] 16:53:00 Test Item Value Reference Range Interpretation Comments ARTERIAL BLOOD GAS PH 7.48 7.35-7.45 H (test code = PHA) ARTERIAL BLOOD GAS PCO2 29.0 mmHg 35.0-45.0 L (test code = PCO2A) ARTERIAL BLOOD GAS PO2 81.2 mmHg 80.0-95.0 N (test code = PO2A) BICARBONATE TOTAL HCO3 20.9 mmol/L 22.0-24.0 L (test code = HCO3) BASE EXCESS (test code -1.8 mmol/L See_Comment N [Aut omated = PAUL) message] The system which generated this result transmitted reference range : (+/-)2.0. The reference range was not used to interpret this result as normal/abnormal . ABG O2 SATURATION (test 95.9 % 95.0-100.0 N code = SATA) ARTERIAL FIO2 (test 30.0 % code = FIO2A) ABG VENT MODE (test Ventilator code = MODEA) ALLENS TEST (test code NOT APPLICABLE = ALLENS) SODIUM (POC) (test code 137 mmol/L 135-147 N = NA/ABG) POTASSIUM (POC) (test 3.63 mmol/L 3.6-5.2 N code = K/ABG) CHLORIDE (ARTERIAL) 105 mmol/L 98-108 N (test code = CL/ABG) GLUCOSE (test code = 186 mg/dL 70-104 H GLU/ABG) IONIZED CALCIUM (test 1.17 mmol/L 1.12-1.32 N code = CAIABG) POC LACTIC ACID (test 2.24 mmol/L 0.5-2.2 H code = POCLAC) TOTAL HGB (test code = 11.0 g/dL 13.0-17.0 L THB) OXYHEMOGLOBIN (test 95.3 % 92.0-98.0 N code = OOHGBT) CARBOXYHEMOGLOBIN (test 0.3 % 0-5.0 N code = HOHGBT) METHEMOGLOBIN (test <0.8 % 0-1.5 N code = METHGB) HHb (test code = HHB) 4.1 % TCO2 ARTERIAL (test 21.8 MMOL/L 24-30 L code = TCO2A) BLOOD GAS [id number] 16:52:00 Test Item Value Reference Range Interpretation Comments ARTERIAL BLOOD GAS PH 7.47 7.35-7.45 H (test code = PHA) ARTERIAL BLOOD GAS PCO2 31.2 mmHg 35.0-45.0 L (test code = PCO2A) ARTERIAL BLOOD GAS PO2 84.8 mmHg 80.0-95.0 N (test code = PO2A) BICARBONATE TOTAL HCO3 22.0 mmol/L 22.0-24.0 N (test code = HCO3) BASE EXCESS (test code -1.1 mmol/L See_Comment N [Aut omated = PAUL) message] The system which generated this result transmitted reference range : (+/-)2.0. The reference range was not used to interpret this result as normal/abnormal . ABG O2 SATURATION (test 96.2 % 95.0-100.0 N code = SATA) ARTERIAL FIO2 (test 30.0 % code = FIO2A) ABG VENT MODE (test Ventilator code = MODEA) ALLENS TEST (test code NOT APPLICABLE = ALLENS) SODIUM (POC) (test code 137 mmol/L 135-147 N = NA/ABG) POTASSIUM (POC) (test 3.62 mmol/L 3.6-5.2 N code = K/ABG) CHLORIDE (ARTERIAL) 106 mmol/L 98-108 N (test code = CL/ABG) GLUCOSE (test code = 184 mg/dL 70-104 H GLU/ABG) IONIZED CALCIUM (test 1.20 mmol/L 1.12-1.32 N code = CAIABG) POC LACTIC ACID (test 2.12 mmol/L 0.5-2.2 N code = POCLAC) TOTAL HGB (test code = 10.6 g/dL 13.0-17.0 L THB) OXYHEMOGLOBIN (test 95.6 % 92.0-98.0 N code = OOHGBT) CARBOXYHEMOGLOBIN (test 0.3 % 0-5.0 N code = HOHGBT) METHEMOGLOBIN (test <0.8 % 0-1.5 N code = METHGB) HHb (test code = HHB) 3.8 % TCO2 ARTERIAL (test 23.0 MMOL/L 24-30 L code = TCO2A) BLOOD GAS [id number] 15:33:00 Test Item Value Reference Range Interpretation Comments ARTERIAL BLOOD GAS PH 7.46 7.35-7.45 H (test code = PHA) ARTERIAL BLOOD GAS PCO2 33.0 mmHg 35.0-45.0 L (test code = PCO2A) ARTERIAL BLOOD GAS PO2 272.5 mmHg 80.0-95.0 H (test code = PO2A) BICARBONATE TOTAL HCO3 22.8 mmol/L 22.0-24.0 N (test code = HCO3) BASE EXCESS (test code -0.5 mmol/L See_Comment N [Aut omated = PAUL) message] The system which generated this result transmitted reference range : (+/-)2.0. The reference range was not used to interpret this result as normal/abnormal . ABG O2 SATURATION (test 99.1 % 95.0-100.0 N code = SATA) ARTERIAL FIO2 (test 70.0 % code = FIO2A) ABG VENT MODE (test Ventilator code = MODEA) ALLENS TEST (test code NOT APPLICABLE = ALLENS) SODIUM (POC) (test code 135 mmol/L 135-147 N = NA/ABG) POTASSIUM (POC) (test 3.93 mmol/L 3.6-5.2 N code = K/ABG) CHLORIDE (ARTERIAL) 106 mmol/L 98-108 N (test code = CL/ABG) GLUCOSE (test code = 201 mg/dL 70-104 H GLU/ABG) IONIZED CALCIUM (test 1.10 mmol/L 1.12-1.32 L code = CAIABG) POC LACTIC ACID (test 1.48 mmol/L 0.5-2.2 N code = POCLAC) TOTAL HGB (test code = 10.6 g/dL 13.0-17.0 L THB) OXYHEMOGLOBIN (test 98.5 % 92.0-98.0 H code = OOHGBT) CARBOXYHEMOGLOBIN (test 0.3 % 0-5.0 N code = HOHGBT) METHEMOGLOBIN (test <0.8 % 0-1.5 N code = METHGB) HHb (test code = HHB) 0.9 % TCO2 ARTERIAL (test 23.9 MMOL/L 24-30 L code = TCO2A) VENOUS BLOOD [id number] 15:23:00 Test Item Value Reference Range Interpretation Comments VENOUS BLOOD GAS PH 7.40 7.35-7.45 N (test code = PHV) VENOUS BLOOD GAS 35.7 mmHg See_Comment [Automated message] PCO2 (test code = The system which PCO2V) generated this result transmitted ref erence range: 46. The reference range was not used to interpr et this result as normal/abnormal . VENOUS BLOOD GAS 30.9 mmHg See_Comment [Automated message] PO2 (test code = The system which PO2V) generated this result transmitted ref erence range: 40. The reference range was not used to interpr et this result as normal/abnormal . VBG HCO3 (test code 22 meq/L = HCO3V) VBG BASE EXCESS -2.7 MMOL/L (test code = YARELY) VENOUS BLOOD GAS O2 59 % See_Comment [Automa arik message] SAT (test code = The system which O2SATV) generated this result transmitted ref erence range: 75. The reference range was not used to interpr et this result as normal/abnormal . 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 ARTERIAL BLOOD GAS PO2 228.7 mmHg 80.0-95.0 H (test code = PO2A) BICARBONATE TOTAL HCO3 18.5 mmol/L 22.0-24.0 L (test code = HCO3) BASE EXCESS (test code -3.0 mmol/L See_Comment L [Aut omated = PAUL) message] The system which generated this result transmitted reference range : (+/-)2.0. The reference range was not used to interpret this result as normal/abnormal . ABG O2 SATURATION (test 99.1 % 95.0-100.0 N code = SATA) ARTERIAL FIO2 (test 50.0 % code = FIO2A) ABG VENT MODE (test Ventilator code = MODEA) ALLENS TEST (test code NOT APPLICABLE = ALLENS) SODIUM (POC) (test code 136 mmol/L 135-147 N = NA/ABG) POTASSIUM (POC) (test 3.79 mmol/L 3.6-5.2 N code = K/ABG) CHLORIDE (ARTERIAL) 106 mmol/L 98-108 N (test code = CL/ABG) GLUCOSE (test code = 182 mg/dL 70-104 H GLU/ABG) IONIZED CALCIUM (test 1.19 mmol/L 1.12-1.32 N code = CAIABG) POC LACTIC ACID (test 1.51 mmol/L 0.5-2.2 N code = POCLAC) TOTAL HGB (test code = 10.5 g/dL 13.0-17.0 L THB) OXYHEMOGLOBIN (test 98.5 % 92.0-98.0 H code = OOHGBT) CARBOXYHEMOGLOBIN (test 0.3 % 0-5.0 N code = HOHGBT) METHEMOGLOBIN (test <0.8 % 0-1.5 N code = METHGB) HHb (test code = HHB) 0.9 % TCO2 ARTERIAL (test 19.2 MMOL/L 24-30 L code = TCO2A) COMPREHENSIVE METABOLIC [id number] 14:46:00 Test Item Value Reference Range Interpretation Comments SODIUM (test code 140 mmol/L 136-145 N = NA) POTASSIUM (test 4.0 mmol/L 3.5-5.1 N code = K) CHLORIDE (test 109 mmol/l 98-107 H code = CL) CARBON DIOXIDE 23 mmol/L 20-31 N (test code = CO2) GLUCOSE (test code 203 mg/dL 74-106 H = GLU) BLOOD UREA 9 mg/dL 9-23 N NITROGEN (test code = BUN) GLOMERULAR >=60 max >60 The Glomerular FILTRATION RATE estimate mL/min Filtratio n Rate is a (test code = GFR) calculated parameterbased on serum Creatinin e, patient age and sex. GFR valuesless than 60 mL/min/1.73 square meters are brenda cative ofChronic Kidne y Disease. Values less than 15 mL/min/1.73squa re meters indicate Kidney failure. The calculation for GFR is based on the CK D-EPI (2020) calculat ion. This formulais race indifferent and is the recommended formula for GFR by the [employer] for Adults.The GFR will not calculate i f the sex is unknown or if thepatient's ag e is <18 years. CREATININE (test 0.50 mg/dL 0.70-1.30 L code = CREAT) TOTAL PROTEIN 4.7 g/dL 5.7-8.2 L (test code = PROT) ALBUMIN (test code 3.1 g/dL 3.2-4.8 L = ALB) CALCIUM (test code 7.4 mg/dL 8.7-10.4 L = CA) BILIRUBIN TOTAL 0.6 mg/dL 0.3-1.2 N (test code = BILT) SGOT/AST (test 49 U/L <34 H code = AST) SGPT/ALT (test 19 U/L 10-49 N code = ALT) ALKALINE 57.0 U/L 46-116 N PHOSPHATASE (test code = ALKP) [id number] 14:46:00 Test Item Value Reference Range Interpretation Comments PHOSPHOROUS (test code = PHOS) 2.7 mg/dL 2.4-5.1 N [id number] 14:46:00 Test Item Value Reference Range Interpretation Comments MAGNESIUM (test code = MAG) 2.2 mg/dL 1.6-2.6 N LACTIC [id number] 14:35:00 Test Item Value Reference Range Interpretation Comments LACTIC ACID (test code = LACT) 1.20 mmol/L 0.5-2.0 N PROTHROMBIN [id number] 14:34:00 Test Item Value Reference Range Interpretation Comments PROTHROMBIN TIME 13.3 SECONDS 10.3-12.9 H PATIENT (test code = PTP) INTERNATIONAL NORMAL 1.13 0.9-1.11 H INR go als are RATIO (test code = individua lized based INR) on patient specificfactors . The following are o nly general guideli jeny: Indications: IN R Goal:1. Treatme nt of venous thromboembolism and 2.0 - 3.0 syste [place] anticoagulation in a variety of conditions, inc luding atrial fibrilla tion and mechanical heart valves 2. Mecha nical mitral and tric uspid valves, 2.5 - 3 .5 systemic anticoagulation for high-risk condi tions THROMBOPLASTIN TIME [id number] 14:34:00 Test Item Value Reference Range Interpretation Comments THROMBOPLASTIN TIME 30.9 SECONDS 23.8-34.8 N INTERPRE TATIVE PARTIAL (test code = DATA: erapeutic PTT) range: Unfractionated heparin:55 - 80 seconds Argatroban:1.5 to 3 times the basel ine PTT CBC W/AUTO [id number] 14:14:00 Test Item Value Reference Range Interpretation Comments WHITE BLOOD CELL (test code = 8.8 x10 3/uL 4.8-10.8 N WBC) RED BLOOD CELL (test code = 3.18 x10 6/uL 4.70-6.10 L RBC) HEMOGLOBIN (test code = HGB) 9.8 g/dL 14.0-18.0 L HEMATOCRIT (test code = HCT) 28.1 % 42.0-52.0 L MEAN CELL VOLUME (test code = 88.4 fL 80.0-94.0 N MCV) MEAN CELL HGB (test code = MCH) 30.8 pg 27-31 N MEAN CELL HGB CONCENTRATION 34.9 G/DL 33-36.5 N (test code = MCHC) RED CELL DISTRIBUTION WIDTH 13.3 % 12.9-16.9 N (test code = RDW) PLATELET COUNT (test code = 134 x10 3/uL 150-440 L PLT) MEAN PLATELET VOLUME (test code 11.3 fL 8.9-12.4 N = MPV) NEUTROPHIL % (test code = NT%) 81.3 % 42.2-75.2 H LYMPHOCYTE % (test code = LY%) 12.9 % 20.5-51.1 L MONOCYTE % (test code = MO%) 4.3 % 1.7-9.3 N EOSINOPHIL % (test code = EO%) 0.3 % 0.0-7.0 N BASOPHIL % (test code = BA%) 0.3 % 0-2.5 N NEUTROPHIL # (test code = NT#) 7.10 x10 3/uL 1.80-7.70 N LYMPHOCYTE # (test code = LY#) 1.13 x10 3/uL 1.00-4.80 N MONOCYTE # (test code = MO#) 0.38 x10 3/uL 0.00-0.80 N EOSINOPHIL # (test code = EO#) 0.03 x10 3/uL 0.00-0.45 N BASOPHIL # (test code = BA#) 0.03 x10 3/uL 0.0-0.20 N - XR CHEST 1 [id number] 13:58:00 [facility] 1955 Sex: MPatient Name: ARIADNA MADRIGAL Unit No: [id number] EXAMS: CPT CODE: [id number] XR CHEST 1 V [id number] EXAM: XR Chest 1 View INDICATION: Cardiac Surgery Postop LOCATION: A1 COMPARISON: Chest radiograph dated 06/29/2023 TECHNIQUE: Frontal view of the chest was obtained. FINDINGS: Endotracheal tube has its tip 2.6 cm from the medina. Right internal jugular central venous catheter has its tip overlying the main pulmonary trunk. Left chest tube and mediastinal drain are in place. There is mild pulmonary vascular congestion, increased from prior. There is no pleural effusion or pneumothorax. The cardiomediastinal silhouette is not enlarged. Median sternotomy wires have been placed. IMPRESSION: Postsurgical changes from interval open-heart surgery with placement of multiple lines and tubes as above. Mild pulmonary vascular congestion is noted. at 1358 Reported and signed by: PEEWEE AMBROSE M.D. CC: Hawk Vidal MD; Jeb Garcia MD Technologist: Eric Jugo Fluoro Time: DAP (Gy m2): Air Kerma (mGy): Trscr Dt/Tm: 07/01/2023 (1358) by:[email or web address] Printed Date/Time: 07/01/2023 (2442) Name: ARIADNA MADRIGAL [facility] Phys: Hawk Magaña MD [address] : 1955 Age: 67 Sex: [place] [address] Loc: P.0307 1 Exam Date: 07/01/2023 Status: ADM IN PH: FAX: PAGE 1 Signed ReportPROTHROMBIN [id number] 12:33:00 Test Item Value Reference Range Interpretation Comments PROTHROMBIN TIME 13.1 SECONDS 10.3-12.9 H PATIENT (test code = PTP) INTERNATIONAL NORMAL 1.11 0.9-1.11 N INR go als are RATIO (test code = individua lized based INR) on patient specificfactors . The following are o nly general guideli jeny: Indications: IN R Goal:1. Treatme nt of venous thromboembolism and 2.0 - 3.0 syste [place] anticoagulation in a variety of conditions, inc luding atrial fibrilla tion and mechanical heart valves 2. Mecha nical mitral and tric uspid valves, 2.5 - 3 .5 systemic anticoagulation for high-risk condi tions THROMBOPLASTIN TIME [id number] 12:33:00 Test Item Value Reference Range Interpretation Comments THROMBOPLASTIN TIME 31.1 SECONDS 23.8-34.8 N INTERPRE TATIVE PARTIAL (test code = DATA: erapeutic PTT) range: Unfractionated heparin:55 - 80 seconds Argatroban:1.5 to 3 times the basel ine PTT [id number] 12:33:00 Test Item Value Reference Range Interpretation Comments FIBRINOGEN (test code = FIB) 286 mg/dL 200-400 N CBC W/AUTO [id number] 12:26:00 Test Item Value Reference Range Interpretation Comments WHITE BLOOD CELL (test code = 6.1 x10 3/uL 4.8-10.8 N WBC) RED BLOOD CELL (test code = 2.84 x10 6/uL 4.70-6.10 L RBC) HEMOGLOBIN (test code = HGB) 8.8 g/dL 14.0-18.0 L HEMATOCRIT (test code = HCT) 25.1 % 42.0-52.0 L MEAN CELL VOLUME (test code = 88.4 fL 80.0-94.0 N MCV) MEAN CELL HGB (test code = MCH) 31.0 pg 27-31 N MEAN CELL HGB CONCENTRATION 35.1 G/DL 33-36.5 N (test code = MCHC) RED CELL DISTRIBUTION WIDTH 13.3 % 12.9-16.9 N (test code = RDW) PLATELET COUNT (test code = 74 x10 3/uL 150-440 L PLT) MEAN PLATELET VOLUME (test code 11.3 fL 8.9-12.4 N = MPV) NEUTROPHIL % (test code = NT%) 74.4 % 42.2-75.2 N LYMPHOCYTE % (test code = LY%) 20.9 % 20.5-51.1 N MONOCYTE % (test code = MO%) 2.9 % 1.7-9.3 N EOSINOPHIL % (test code = EO%) 0.3 % 0.0-7.0 N BASOPHIL % (test code = BA%) 0.5 % 0-2.5 N NEUTROPHIL # (test code = NT#) 4.56 x10 3/uL 1.80-7.70 N LYMPHOCYTE # (test code = LY#) 1.28 x10 3/uL 1.00-4.80 N MONOCYTE # (test code = MO#) 0.18 x10 3/uL 0.00-0.80 N EOSINOPHIL # (test code = EO#) 0.02 x10 3/uL 0.00-0.45 N BASOPHIL # (test code = BA#) 0.03 x10 3/uL 0.0-0.20 N COAGULATION TIME [id number] 12:24:00 Test Item Value Reference Range Interpretation Comments COAGULATION TIME ACTIVATED (test 113 SECONDS 74-137 N code = ACT) COAGULATION TIME [id number] 11:30:00 Test Item Value Reference Range Interpretation Comments COAGULATION TIME ACTIVATED (test 498 SECONDS 74-137 H code = ACT) COAGULATION TIME [id number] 11:06:00 Test Item Value Reference Range Interpretation Comments COAGULATION TIME ACTIVATED (test 546 SECONDS 74-137 H code = ACT) COAGULATION TIME [id number] 10:40:00 Test Item Value Reference Range Interpretation Comments COAGULATION TIME ACTIVATED (test 684 SECONDS 74-137 H code = ACT) COAGULATION TIME [id number] 10:05:00 Test Item Value Reference Range Interpretation Comments COAGULATION TIME ACTIVATED (test 696 SECONDS 74-137 H code = ACT) COAGULATION TIME [id number] 09:27:00 Test Item Value Reference Range Interpretation Comments COAGULATION TIME ACTIVATED (test 606 SECONDS 74-137 H code = ACT) PROTHROMBIN [id number] 07:43:00 Test Item Value Reference Range Interpretation Comments PROTHROMBIN TIME 12.1 SECONDS 10.3-12.9 N PATIENT (test code = PTP) INTERNATIONAL NORMAL 1.03 0.9-1.11 N INR go als are RATIO (test code = individua lized based INR) on patient specificfactors . The following are o nly general guideli jeny: Indications: IN R Goal:1. Treatme nt of venous thromboembolism and 2.0 - 3.0 syste [place] anticoagulation in a variety of conditions, inc luding atrial fibrilla tion and mechanical heart valves 2. Mecha nical mitral and tric uspid valves, 2.5 - 3 .5 systemic anticoagulation for high-risk condi tions THROMBOPLASTIN TIME [id number] 07:43:00 Test Item Value Reference Range Interpretation Comments THROMBOPLASTIN TIME 30.0 SECONDS 23.8-34.8 N INTERPRE TATIVE PARTIAL (test code = DATA: erapeutic PTT) range: Unfractionated heparin:55 - 80 seconds Argatroban:1.5 to 3 times the basel ine PTT [id number] 07:17:00 Test Item Value Reference Range Interpretation Comments GLUBED (test code = GLUBED) 140 MG/DL 70-105 H BASIC METABOLIC [id number] 06:56:00 Test Item Value Reference Range Interpretation Comments SODIUM (test code 135 mmol/L 136-145 L = NA) POTASSIUM (test 3.9 mmol/L 3.5-5.1 N code = K) CHLORIDE (test 106 mmol/l 98-107 N code = CL) CARBON DIOXIDE 26 mmol/L 20-31 N (test code = CO2) GLUCOSE (test code 131 mg/dL 74-106 H = GLU) BLOOD UREA 7 mg/dL 9-23 L NITROGEN (test code = BUN) GLOMERULAR >=60 max >60 The Glomerular FILTRATION RATE estimate mL/min Filtratio n Rate is a (test code = GFR) calculated parameterbased on serum Creatinin e, patient age and sex. GFR valuesless than 60 mL/min/1.73 square meters are brenda cative ofChronic Kidne y Disease. Values less than 15 mL/min/1.73squa re meters indicate Kidney failure. The calculation for GFR is based on the CK D-EPI (2020) calculat ion. This formulais race indifferent and is the recommended formula for GFR by the National Kidney Foundation for Adults.The GFR will not calculate i f the sex is unknown or if thepatient's ag e is <18 years. CREATININE (test 0.60 mg/dL 0.70-1.30 L code = CREAT) CALCIUM (test code 8.5 mg/dL 8.7-10.4 L = CA) [id number] 20:44:00 Test Item Value Reference Range Interpretation Comments GLUBED (test code = GLUBED) 178 MG/DL 70-105 H Novel Coronavirus 16:37:00 Test Item Value Reference Range Interpretation Comments Novel Coronavirus Negative Negative Positive r esults are 2018 Inhouse (test indicativ e of the presence code = [id number]) ofSARS-CoV -2 RNA, clinical correlation wit h patient historyand othe r diagnostic info rmation is necessary to determinepatien t infection status. Positiv e results do not rule out bacterial infection or co -infection with other viru ses. Negative result s do not preclude SARS-C oV-2 infection andsh ould not be used as the long e basis for patient managementdecis ions. Negative result s must be combined with otherclinical observations, p atient history, and epidemiological information . Detection of SARS-CoV-2 RNA may be affe cted bysample collec tion methods, storag e conditions, and /or stageof infection. Eileen l RNA mutations, vacc inations, antiviraltherap eutics, antibiotics, chemotherapeuti c orimmunosuppres dasha drugs have not been e valuated for effectson d etection. Results are for the identification of SARS-CoV-2 RNA usingreal-time (RT) polymerase mercedez n reaction (PCR) technolog yfor the qualitative det ection of nucleic acids f rom [id number] v irus and diagnosis of SA RS-CoV-2 virusinfection. It is an Emergency Use Authorization ( EUA) testauthorized by the U.S. FDA. Novel Coronavirus 16:36:00 Test Item Value Reference Range Interpretation Comments Novel Coronavirus Negative Negative Positive r esults are 2019 Inhouse (test indicativ e of the presence code = [id number]) ofSARS-CoV -2 RNA, clinical correlation wit h patient historyand othe r diagnostic info rmation is necessary to determinepatien t infection status. Positiv e results do not rule out bacterial infection or co -infection with other viru ses. Negative result s do not preclude SARS-C oV-2 infection andsh ould not be used as the long e basis for patient managementdecis ions. Negative result s must be combined with otherclinical observations, p atient history, and epidemiological information . Detection of SARS-CoV-2 RNA may be affe cted bysample collec tion methods, storag e conditions, and /or stageof infection. Eileen l RNA mutations, vacc inations, antiviraltherap eutics, antibiotics, chemotherapeuti c orimmunosuppres dasha drugs have not been e valuated for effectson d etection. Results are for the identification of SARS-CoV-2 RNA usingreal-time (RT) polymerase mercedez n reaction (PCR) technolog yfor the qualitative det ection of nucleic acids f rom [id number] v irus and diagnosis of SA RS-CoV-2 virusinfection. It is an Emergency Use Authorization ( EUA) testauthorized by the U.S. FDA. [id number] 16:24:00 Test Item Value Reference Range Interpretation Comments GLUBED (test code = GLUBED) 101 MG/DL 70-105 N [id number] 11:01:00 Test Item Value Reference Range Interpretation Comments GLUBED (test code = GLUBED) 200 MG/DL 70-105 H WINTROBE SED [id number] 08:57:00 Test Item Value Reference Range Interpretation Comments WINTROBE SED RATE (test code = 29 mm/hr 0-7 H SEDWI) [id number] 07:23:00 Test Item Value Reference Range Interpretation Comments GLUBED (test code = GLUBED) 129 MG/DL 70-105 H [id number] 21:15:00 Test Item Value Reference Range Interpretation Comments GLUBED (test code = GLUBED) 170 MG/DL 70-105 H LIPID PROFILE (CORONARY RISK)2023-06-29 19:09:00 Test Item Value Reference Range Interpretation Comments TRIGLYCERIDES (test 112 mg/dL <150 N code = TRIG) CHOLESTEROL (test code 165 mg/dL <200 N = CHOL) HDL CHOLESTEROL (test 48 mg/dL >60 L Please note New code = HDL) Reference Inter chris Jun 2023 REFER ENCE INTERVALLow (undesirable, h igh risk): < 40 mg/ dLHigh (desirable, low risk): >/= 60 mg/dL LIPOPROTEIN LDL (test 111 mg/dL <100 H INTERP RETATIVE code = LDLC) DATA:LDL Choles terol: Reference RangesOptimal: <100 mg/dLNear Optim al: 100 -129 mg/dLBorde rline High: 130 - 159 mg/dLHigh: 160 - 189 mg/dLVery High: = or > 190 mg/dL CORONARY RISK FACTOR 3.44 CHOL/H DL RISK MALE: (test code = RISK) 1/2 AVG 3 .43 FEMALE: 1/2 AVG 3.27 AV G 4.97 AVG 4.44 2X AV G 9.55 2X AVG 7.05 3X AVG 23.39 3X AVG 11.04~~~~~~~~~~ ~~~~~~~ ~~~~~~~~~~~~~~~ ~~~~~~~ ~~~~~~~~~~~~~~~ ~~~~~~N ational Cholest elizabeth Education (NCEP ) Guidelines:~~~~ ~~~~~~~ ~~~~~~~~~~~~~~~ ~~~~~~~ ~~~~~~~~~~~~~~~ ~~~~~~~ ~~~~~ HDL Cholesterol<4 0mg/dL: HDL Cholesterol (Major risk factor for CHD)>60mg/dL: H DL Cholesterol (Ne gative risk factor for CHD)40-59mg/dL: Borderline Risk LDL Cholesterol<1 00mg/dL : Desirable LDL -C [id number] 0-159mg /dL: Borderline High Risk LDL-C tfvsnpxiuccpm54 0-189mg /dL: High risk LDL-C concentration H DL-LDL Cholesterol is affected by a n umber of factors such as smoking, age an d sex.~~~~~~~~~~~ ~~~~~~~ ~~~~~~~~~~~~~~~ ~~~~~~~ ~~~~~~~~~~~~~~~ ~~~~~ [id number] 17:21:00 Test Item Value Reference Range Interpretation Comments GLUBED (test code = GLUBED) 100 MG/DL 70-105 N - CT CHEST W/O [id number] 17:04:00 [facility] 1955 Sex: MPatient Name: ARIADNA MADRIGAL Unit No: [id number] EXAMS: CPT CODE: [id number] CT CHEST W/O CONTRAST [id number] EXAM: - CT CHEST W/O CONTRAST DATE: 06/29/2023 1:55 PM. INDICATION: Surgical planning (cardiac surgery) . COMPARISON: None available. TECHNIQUE: Volumetric CT acquisition of the chest without intravenous contrast. Sagittal and coronal reconstructions are provided. AEC, mA/kV adjustment by pat ient size, and/or iterative reconstruction technique were used, per departmental dose-optimization program. Location: W1 FINDINGS: Lines and Tubes: None. Lower Neck: The visible portions of the lower neck and thyroid are unremarkable. Lungs/Pleura: The trachea and major bronchi are patent. No focal consolidation, pleural effusion, or pneumothorax is identified. Chest granuloma in the left upper lobe Lymph Nodes: There is no mediastinal, axillary, or internal mammary lymphadenopathy. Evaluation for hilar lymphadenopathy is limited without intravenous contrast. Heart and Vasculature: The heart size is normal. There is no pericardial effusion. Ascending thoracic aortic aneurysm measures 4.6 x 5.1 cm.The aorta measures 3.1 x 3.4 cm at the proximal arch. The remainder of the aorta is normal in caliber. Normal branching pattern of the greater vessels Moderate atherosclerotic calcifications of the aorta. Moderate degree of calcified plaque without was seen in the LAD territory and to a lesser extentin the RCA and LCx territories. Upper Abdomen: Calcified granulomas within the liver Bones: No acuteabnormality. Soft Tissues: Unremarkable. IMPRESSION: No acute abnormality. Ascending thoracic aortic aneurysm measures 5.1 cm. Extensive aortic valve calcifications Name: ARIADNA MADRIGAL [facility] Phys: YUMIKO VallesArsenio PA [address] : 1955 Age: 67 Sex: M [place] [address] Loc: P.0411 A Exam Date: 06/29/2023 Status: ADM IN PH: FAX: PAGE 1 Signed Report (CONTINUED) Patient Name: ARIADNA MADRIGAL Unit No: [id number] EXAMS: CPT CODE: [id number] CTCHEST W/O CONTRAST [id number] (Continued) at 1704 Reported and signed by: Carrillo Price MD CC: Jeb Garcia MD; Arsenio STEWART Technologist: Marjan Mckeon CTDI: 12.29 DLP: 524 Trscr Dt/Tm: 06/29/2023 (1704) by:[email or web address] Printed Date/Time: 06/29/2023 (170) Name: ARIADNA MADRIGAL [facility] Phys: YUMIKO VallesAsrenio STEWART [address] : 1955 Age: 67 Sex: M [place] [address] Loc: P.0411 A Exam Date: 06/29/2023 Status: ADM IN PH: FAX: PAGE 2 Signed Report- DUP VEIN BRITTA 2023-06-29 16:56:00 [facility] : 1955 Sex: MPatient Name: ARIADNA MADRIGAL Unit No: [id number] EXAMS: CPT CODE: [id number] DUP VEIN BRITTA 32416 Exam: Ultrasound venous Doppler, bilateral, vein mapping Location: A1 REASON FOR EXAM: Saphenous vein mapping for CABG COMPARISON: None. TECHNIQUE: Doppler, aldrich-scale and color-flow imaging of the bilaterallower extremity venous system was performed. FINDINGS: The femoral vein has a normal appearance. The vessel show normal compressibility, color flow and doppler augmentation. RIGHT (centimeters):Greater saphenous vein above the knee Proximal: 0.3 Mid: 0.2 Distal: 0.2 Knee: 0.3 Great saphenous vein below the knee- Proximal: 0.2 Mid: 0.2 Distal: 0.3 Small saphenous vein- Proximal: 0.1 Mid: 0.1 Distal: 0.1 Femoral vein Proximal: 0.7 Mid: 0.7 Distal: 0.9 LEFT (CENTIMETERS): Greater saphenous vein above the knee Proximal: 0.5 Mid: 0.3 Distal: 0.2 Knee: 0.1 Great saphenous vein below the knee- Proximal: 0.2 Mid: 0.2 Distal: 0.1 Small saphenous vein- Proximal: 0.2 Mid: 0.2 Distal: 0.2 Name: ARIADNA MADRIGAL [facility] Phys: Arsenio Ag [address] : 1955 Age: 67 Sex: [place] [address] Loc: P.0411 A Exam Date: 06/29/2023 Status: ADM IN PH: FAX: PAGE 1 Signed Report (CONTINUED) Patient Name: ARIADNA MADRIGAL Unit No: [id number] EXAMS: CPT CODE: [id number] DUP VEIN BRITTA 66134 (Continued) Femoral vein Proximal: 0.9 Mid: 0.7 Distal: 0.8 IMPRESSION: Bilateral lower extremity venous mapping as above. at 1656 Reported and signed by: CHON VALLADARES M.D. CC: Jeb Garcia MD; Arsenio STEWART Technologist: LOLLY PEREZ RDMS, Probe: Trscr Dt/Tm: 06/29/2023 (1655) by:José Printed Date/Time: 06/29/2023 (1658) Name: ARIADNA MADRIGAL [facility] Phys: Arsenio Ag [id number] : 1955 Age: 67 Sex: [place] [address] Loc: P.0411 A Exam Date: 06/29/2023 Status: ADM IN PH: FAX: PAGE 2 Signed Report- DUP EXTRACRANIAL [id number] 16:54:00 [facility] : 1955 Sex: MPatient Name: ARIADNA MADRIGAL Unit No: [id number] EXAMS: CPT CODE: [id number] DUP EXTRACRANIAL BRITTA [id number] Exam: - DUP EXTRACRANIAL BRITTA Location: A1 HISTORY: , pre op cardiac surgery, COMPARISON: None available TECHNIQUE: Static, grayscale, color Doppler and spectral images of the bilateral carotid and vertebral arteries were obtained. FINDINGS: No discrete atherosclerotic plaque is identified within the right or left common or internal carotid arteries. The visualized aspects of the external carotid arteries are unremarkable. There is normal laminar flow in bilateral internal carotid arteries.The degree of stenosis is based on diameter reduction on grayscale imaging. Peak systolic velocitiesin centimeters per second are as follows: Right: Internal carotid: 63 Common carotid: 46 External carotid: 91 ICA/CCA ratio: 1.4 Antegrade vertebral flow is visualized. Left: Internal carotid: 79 Common carotid: 44 External carotid: 53 ICA/CCA ratio: 1.8 Antegrade vertebral flow is visualized. IMPRESS ION: 1. No high velocity stenosis is identified. ICA/CCA ratios are normal. [facility]: Earl Agkathleen STEWART [address] : 1955 Age: 67 Sex: M [place] [address] Loc: P.0411 A Exam Date: 06/29/2023 Status: ADM IN PH: FAX: PAGE 1 Signed Report (CONTINUED) Patient Name: ARIADNA MADRIGAL Unit No: [id number] EXAMS: CPT CODE: [id number] DUP EXTRACRANIAL BRITTA 87423 (Continued) at 1654 Reported and signed by: CHON VALLADARES M.D. CC: Jeb Garcia MD; Arsenio STEWART Technologist: LOLLY PEREZ RDMS, AB Probe: Trscr Dt/Tm: 06/29/2023 (165) by:[email or web address] Printed Date/Time: 06/29/2023 (165) Name: ARIADNA MADRIGAL [facility] Phys: YUMIKO VallesArsenio STEWART [address]DOB: 1955 Age: 67 Sex: M [place] [address] Loc: P.0411 A Exam Date: 06/29/2023 Status: ADM IN PH: FAX: PAGE 2 Signed Report- XR CHEST 1 [id number] 16:20:00 [facility] : 1955 Sex: MPatient Name: ARIADNA MADRIGAL Unit No: [id number] EXAMS: CPT CODE: [id number] XR CHEST 1 V 80190 EXAM: XR Chest 1 View INDICATION: pre op CABG LOCATION: A1 COMPARISON: None available. TECHNIQUE: Frontal view of the chest was obtained. FINDINGS: There is a small calcified granuloma at the left lung base. Lungs are otherwise clear. There is no pleural effusion or pneumothorax. The cardiomediastinal silhouette is unremarkable. No acute osseous abnormality is identified. IMPRESSION: No acute cardiopulmonary abnormality. at 1620 Reported and signed by: PEEWEE AMBROSE M.D. CC: Jeb Garcia MD; Arsenio STEWART Technologist: Teodoro Condon Time: DAP (Gy m2): Air Kerma (mGy): Trscr Dt/Tm: 06/29/2023 (162) by:[email or web address] Printed Date/Time: 06/29/2023 (162) Name: ARIADNA MADRIGAL [facility] Phys: Arsenio Ag [address] : 1955 Age: 67 Sex: [place] [address] Loc: P.0411 A Exam Date: 06/29/2023 Status: ADM IN PH: FAX: PAGE 1 Signed ReportCoronavirus 2019 nCoV [id number] 13:21:00 Test Item Value Reference Range Interpretation Comments Coronavirus 2018 Negative Negative Negative re sults should be nCoV Bedside (test treated a s presumptive code = and, ifinconsis tent with [id number]) clinical signs and symptoms or nec essaryfor patient managem ent, should be tested with differentauthor ized or cleared molecul ar tests. Negative result s donot preclude SARS-C OV-2 infection and s hould not be used asthe s ole basis for patient man agement decisions. Nega tiveresults should be consi dered in the context of the patient'srecent exposures, history, presen ce of clinical signs andsymptoms consistent with COVID-19. [id number] 11:55:00 Test Item Value Reference Range Interpretation Comments GLUBED (test code = GLUBED) 89 MG/DL 70-105 N BASIC METABOLIC [id number] 11:23:00 Test Item Value Reference Range Interpretation Comments SODIUM (test code 132 mmol/L 136-145 L = NA) POTASSIUM (test 4.2 mmol/L 3.5-5.1 N code = K) CHLORIDE (test 99 mmol/l 98-107 N code = CL) CARBON DIOXIDE 28 mmol/L 20-31 N (test code = CO2) GLUCOSE (test code 107 mg/dL 74-106 H = GLU) BLOOD UREA 8 mg/dL 9-23 L NITROGEN (test code = BUN) GLOMERULAR >=60 max >60 The Glomerular FILTRATION RATE estimate mL/min Filtratio n Rate is a (test code = GFR) calculated parameterbased on serum Creatinin e, patient age and sex. GFR valuesless than 60 mL/min/1.73 square meters are brenda cative ofChronic Kidne y Disease. Values less than 15 mL/min/1.73squa re meters indicate Kidney failure. The calculation for GFR is based on the CK D-EPI (2020) calculat ion. This formulais race indifferent and is the recommended formula for GFR by the National Kidney Foundation for Adults.The GFR will not calculate i f the sex is unknown or if thepatient's ag e is <18 years. CREATININE (test 0.70 mg/dL 0.70-1.30 N code = CREAT) CALCIUM (test code 9.4 mg/dL 8.7-10.4 N = CA) THROMBOPLASTIN TIME [id number] 10:59:00 Test Item Value Reference Range Interpretation Comments THROMBOPLASTIN TIME 35.1 SECONDS 23.8-34.8 H INTERPRE TATIVE PARTIAL (test code = DATA: erapeutic PTT) range: Unfractionated heparin:55 - 80 seconds Argatroban:1.5 to 3 times the basel ine PTT CBC W/AUTO [id number] 10:50:00 Test Item Value Reference Range Interpretation Comments WHITE BLOOD CELL (test code = 5.3 x10 3/uL 4.8-10.8 N WBC) RED BLOOD CELL (test code = 4.21 x10 6/uL 4.70-6.10 L RBC) HEMOGLOBIN (test code = HGB) 12.9 g/dL 14.0-18.0 L HEMATOCRIT (test code = HCT) 36.8 % 42.0-52.0 L MEAN CELL VOLUME (test code = 87.4 fL 80.0-94.0 N MCV) MEAN CELL HGB (test code = MCH) 30.6 pg 27-31 N MEAN CELL HGB CONCENTRATION 35.1 G/DL 33-36.5 N (test code = MCHC) RED CELL DISTRIBUTION WIDTH 13.2 % 12.9-16.9 N (test code = RDW) PLATELET COUNT (test code = 140 x10 3/uL 150-440 L PLT) MEAN PLATELET VOLUME (test code 10.7 fL 8.9-12.4 N = MPV) NEUTROPHIL % (test code = NT%) 64.8 % 42.2-75.2 N LYMPHOCYTE % (test code = LY%) 25.0 % 20.5-51.1 N MONOCYTE % (test code = MO%) 7.2 % 1.7-9.3 N EOSINOPHIL % (test code = EO%) 1.5 % 0.0-7.0 N BASOPHIL % (test code = BA%) 1.1 % 0-2.5 N NEUTROPHIL # (test code = NT#) 3.42 x10 3/uL 1.80-7.70 N LYMPHOCYTE # (test code = LY#) 1.32 x10 3/uL 1.00-4.80 N MONOCYTE # (test code = MO#) 0.38 x10 3/uL 0.00-0.80 N EOSINOPHIL # (test code = EO#) 0.08 x10 3/uL 0.00-0.45 N BASOPHIL # (test code = BA#) 0.06 x10 3/uL 0.0-0.20 N POC VENOUS BLOOD [id number] 08:21:00 Test Item Value Reference Range Interpretation Comments POC VENOUS BLOOD 7.333 pH units 7.26-7.43 N GAS PH (test code = POCPHV) POC VENOUS BLOOD 48.5 mmHg e 35.0-45.0 H GAS PCO2 (test code = [id number]) POC VENOUS BLOOD 42.8 mmHg e 80.0-100.0 LL GAS PO2 (test code = QOQXJ1D) POC TCO2 VENOUS 25.9 MMOL/L e 24.0-30.0 N (test code = PXKIVN1U) POC HCO3 VENOUS 25.8 MMOL/L e 22.0-26.0 N (test code = [id number]) POC BASE EXCESS -0.6 MMOL/L e See_Comment N [Automated VENOUS (test code = message] The system POCBEV) which generated this result transmitted reference range : -3.0 to 3.0. Th e reference range was not used to interpret this result as normal/abnormal . POC O2 SATURATION 74 % e 95-100 L VENOUS (test code = [id number]) POC SAMPLE SOURCE Venous Descript Specimen (test code = POCSAMPLE) POC ARTERIAL BLOOD [id number] 08:21:00 Test Item Value Reference Range Interpretation Comments POC ARTERIAL BLOOD GAS PH 7.343 pH units 7.35-7.45 L (test code = POCPHA) POC ARTERIAL BLOOD GAS PCO2 46.3 mmHg e 35.0-45.0 H (test code = [id number]) POC TCO2 ARTERIAL (test 25.2 MMOL/L e 24.0-30.0 N code = POCTCO2) ARTERIAL BLOOD GAS PO2 79.1 mmHg e 80.0-105.0 L (test code = [id number]) POC HCO3 ARTERIAL (test 25.1 MMOL/L e 22.0-26.0 N code = [id number]) POC BASE EXCESS (test code -1.0 MMOL/L e = POCBEA) POC O2 SATURATION (test 95 % e 95-100 N code = POCO2S) POC SAMPLE SOURCE (test Arterial Descript Specimen code = POCSAMPLE) PROTHROMBIN [id number] 08:26:00 Test Item Value Reference Range Interpretation Comments PT PATIENT (test 11.9 SECONDS 9.3-12.9 N code = PTP) INTERNATIONAL NORMAL 1.07 INR Unit 0.8-1.2 N TARGE T INR BY RATIO (test code = INDICATIO N Indication INR) INR1. Prophylax is of venous thrombos is 2.0 - 3.0 (orthoped ic surgery), Proph ylaxis of venous throm bosis (other than hig h-risk surgery), Treat ment of Deep Vein Thrombosis/Pulm onary Embolism, Preve ntion of systemic emb olism - Tissue heart va lves, Acute Myocardia l Infarction (to prevent systemic emboli sm), Valvular heart disease, Acute Myocardial Infa rction (to prevent sys temic embolism), Valv ular heart disease, Atrial Fibrillation, Bileaflet mecha nical valve in aortic position.2. Mec hanical prosthetic valv es (high risk), 2. 5 - 3.5 Presence of Lup us Anticoagulant o r Antiphospholipi d Antibodies, Pre vention of systemic emb olism - Acute Myocardia l Infarction (to prevent recurrent infar ct). CBC W/AUTO [id number] 08:05:00 Test Item Value Reference Range Interpretation Comments WHITE BLOOD CELL (test code = 4.2 K/mm3 3.5-11.0 N WBC) RED BLOOD CELL (test code = 4.55 M/mm3 4.70-6.10 L RBC) HEMOGLOBIN (test code = HGB) 13.5 G/DL 12.3-15.9 N HEMATOCRIT (test code = HCT) 39.6 % 35.8-46.7 N MEAN CELL VOLUME (test code = 87.0 Fl 86.3-98.9 N MCV) MEAN CELL HGB (test code = MCH) 29.7 pg 28.9-34.4 N MEAN CELL HGB CONCETRATION 34.1 G/DL 32.1-34.5 N (test code = MCHC) RED CELL DISTRIBUTION WIDTH 13.2 SD 11.5-14.5 N (test code = RDW) PLATELET COUNT (test code = 143 K/mm3 150-450 L PLT) MEAN PLATELET VOLUME (test code 11.10 fL 7.0-9.6 H = MPV) NEUTROPHIL % (test code = NT%) 52.0 % 40-76 N IMMATURE GRANULOCYTE % (test 0.7 % 0.0-5.0 N code = IG%) LYMPHOCYTE % (test code = LY%) 34.1 % 20.5-51.1 N MONOCYTE % (test code = MO%) 10.1 % 1.7-9.3 H EOSINOPHIL % (test code = EO%) 1.9 % 0.0-6.0 N BASOPHIL % (test code = BA%) 1.2 % 0.0-2.0 N NUCLEATED RBC % (test code = 0.0 /100WBC% 0.0-1.0 N NRBC%) NEUTROPHIL # (test code = NT#) 2.2 K/mm3 1.8-7.6 N IMMATURE GRANULOCYTE # (test 0.03 x10 3/uL 0.00-0.03 N code = IG#) LYMPHOCYTE # (test code = LY#) 1.4 K/mm3 0.6-3.0 N MONOCYTE # (test code = MO#) 0.4 K/mm3 0.2-1.5 N EOSINOPHIL # (test code = EO#) 0.1 K/mm3 0.0-0.4 N BASOPHIL # (test code = BA#) 0.1 K/mm3 0.0-0.2 N NUCLEATED RBC # (test code = 0.0 K/mm3 0.00-0.01 N NRBC#) MANUAL DIFF REQUIRED (test code NO DIFF/SCN CRITERIA = MDIFF) COMPREHENSIVE METABOLIC [id number] 07:42:00 Test Item Value Reference Range Interpretation Comments SODIUM (test code 135 mmol/L 134-147 N = NA) POTASSIUM (test 4.0 mmol/L 3.4-5.0 N code = K) CHLORIDE (test 103 mmol/L 100-108 N code = CL) CARBON DIOXIDE 28 mmol/L 21-32 N (test code = CO2) ANION GAP (test 4.0 GAP calc 4.0-15.0 N code = GAP) GLUCOSE (test code 162 MG/DL 70-110 H = GLU) BLOOD UREA 11 MG/DL 7-18 N NITROGEN (test code = BUN) GLOMERULAR >=60 max >60 The Glomerular FILTRATION RATE estimate estGFR Filtratio n Rate is a (test code = GFR) calculated parameterbased on serum Creatinin e, patient age and sex. GFR valuesless than 60 mL/min/1.73 square meters are brenda cative ofChronic Kidne y Disease. Values less than 15 mL/min/1.73squa re meters indicate Kidney failure. The calculation for GFR is based on the CK D-EPI (2020) calculat ion. This formulais race indifferent and is the recommended formula for GFR by the National Kid[employer] for Adults.The GFR will not calculate i f the sex is unknown or if thepatient's ag e is <18 years. CREATININE (test 0.8 MG/DL 0.8-1.3 N code = CREAT) TOTAL PROTEIN 7.9 G/DL 6.4-8.2 N (test code = PROT) ALBUMIN (test code 4.2 G/DL 3.4-5.0 N = ALB) GLOBULIN (test 3.7 GM/dL code = GLOB) ALBUMIN/GLOBULIN 1.1 RATIO 1.2-2.2 L RATIO (test code = A/G) CALCIUM (test code 9.3 MG/DL 8.5-10.1 N = CA) BILIRUBIN TOTAL 0.50 MG/DL 0.2-1.2 N (test code = BILT) SGOT/AST (test 21 Unit/L 15-37 N code = AST) SGPT/ALT (test 24 Unit/L 12-78 N code = ALT) ALKALINE 90 Unit/L 50-136 N PHOSPHATASE TOTAL (test code = ALKP) LIPID PROFILE (CORONARY RISK)2023-05-30 07:42:00 Test Item Value Reference Range Interpretation Comments TRIGLYCERIDES (test 100 MG/DL 0-150 N code = TRIG) CHOLESTEROL (test 196 MG/DL 133-200 N code = CHOL) CHOLESTEROL/HDL 3.56 RATIO See_Comment RISK ASSOCIA ARIK WITH RATIO (test code = CHOL/HDL RATIOS: RISK CHOLHDL) MALE FEMALE1/2 AVERAGE 3.43 3.27AVERAG E 4.97 4.442X AVERAGE 9.55 7.053X AVERAGE 23.39 11.04 NOTE THAT THE REFERENCE VALUE IS RELATED TO RISK LEVELS ASRECOMMENDED B Y THE [facility] . [Automated mess age] The system which ge nerated this result tra nsmitted reference range : 0-. The reference range was not used to interpr et this result as normal/abnormal . HDL CHOLESTEROL 55 MG/DL 40-59 N (test code = HDL) NON-HDL CHOLESTEROL 141 mg/dL <130 H (test code = NHDL) LIPOPROTEIN LDL 119 MG/DL 0-129 N <100 OPTIMAL 100 - 129 (test code = LDL) NEAR OPTIM AL/ABOVE [id number] - 15 9 [id number] - 189 HIGH>OR= 190 VE RY HIGHNOTE THAT G UIDELINES ARE PROVIDED BY NATIONAL CHOLESTEROLEDUC ATION PROGRAM ADULT T REATMENT PANEL III LDL/HDL (test code 2.16 Ratio See_Comment N [Automat ed message] The = LDL/HDL) system which ge nerated this result tra nsmitted reference range : 1.48-3.22 Avg. The reference range was not used to interpr et this result as normal/abnormal . [id number] 07:42:00 Test Item Value Reference Range Interpretation Comments MAGNESIUM (test code = MAG) 2.3 MG/DL 1.8-2.4 N
[2023-07-12 10:35] LABS: Absolute Lymphocytes (CBC) 0.9 K/uL (0.7-4.9); Hematocrit 24.3 % (39.6-49.0); Lymphocytes % 13.6 % (15.3-44.8); MCV 90.7 fL (80-100); MPV 8.1 fL (7.6-11.3); Platelets 307 thou/uL (152-406); RBC Red Blood Cell Count 2.68 M/uL (4.33-5.43)
--- NOTE | 2023-07-12 10:40 | RAD REPORT ---
EXAM DESCRIPTION: RAD - Chest Single View - 07/12/2023 10:35 am CLINICAL HISTORY: CHEST PAIN COMPARISON: Chest Pa And Lat (2 Views) dated 01/17/2021; Chest Pa And Lat (2 Views) dated 09/29/2019; Chest Single View dated 09/30/2016; CHEST PA AND LAT 2 VIEW dated 05/13/2011 FINDINGS: Lines: None. Lungs: No evidence of edema or pneumonia. Pleural: No significant pleural effusions or pneumothorax. Cardiac: The heart size is within normal limits. Mediastinum: Within normal limits. Bones: No acute fractures. Sternotomy. Soft tissue anchors in the right humeral head. Other: None IMPRESSION: No acute cardiopulmonary disease.
[2023-07-12 11:08] LABS: ALT/SGPT 38 U/L (16-61); Albumin 3.3 g/dL (3.4-5.0); Alkaline Phosphatase 108 U/L (45-117); BUN Blood Urea Nitrogen 12 mg/dL (7-18); Bicarbonate 28 mEq/L (21-32); Bilirubin Total 0.3 mg/dL (0.2-1.0); Glomerular Filtration Rate 97 ml/min (=/>90); Glucose Level 276 mg/dL (74-106); Protein, Total 7.1 g/dL (6.4-8.2); Sodium Level 128 mEq/L (136-145)
[2023-07-12 11:09] LABS: AST/SGOT 28 U/L (15-37); Bilirubin Direct < 0.1 mg/dL (0-0.2); Bilirubin Indirect, Calculated ND mg/dL (0.2-0.8); Potassium 4.3 mEq/L (3.5-5.1)
--- NOTE | 2023-07-12 11:20 | EDPHYS ---
Physician Documentation [facility] Name: Andrew Madrigal Age: 67 yrs Sex: Male : 1955 Arrival Date: 07/12/2023 Time: 09:59 Bed 4 Private MD: ED Physician Aníbal Castelan HPI: 07/12 11:27 This 67 yrs old Male presents to ER via Ambulatory with complaints of Low Temp. ec2 11:27 This 67 yrs old Male presents to ER via Ambulatory with complaints of Low Temp. ec2 10:16 Patient presents due to concern for low body temperature. 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 States that he has been checking his vital signs regularly and was concerned that his temperature was abnormally low. Patient states his temperature has been fluctuating between mid 96 to 98 F. Patient reports no fevers or chills, no nausea or vomiting, no diarrhea symptoms. Patient states that his postoperative sites have been well-appearing and has not noticed any redness or pus from the area. Patient otherwise has no specific complaints, does report a little bit of discomfort at the operative site. Patient denies any abdominal pain or urinary concerns.. Historical: - Allergies: 10:11 No Known Allergies; ll1 - PMHx: 10:11 Diabetes - NIDDM; Hyperlipidemia; Hypertension; ll1 - PSHx: 10:11 open heart SX (Hypertension); ll1 - Immunization history:: Adult Immunizations up to date. - Social history:: Smoking status: Patient denies any tobacco usage or history of. ROS: 11:27 Constitutional: Negative for fever, chills, and weight loss, ec2 Exam: 10:18 Constitutional: No acute distress Head/Face: Normocephalic, atraumatic. Eyes: EOMI ec2 Cardiovascular: Regular rate Respiratory: No respiratory distress Abdomen/GI: Non-distended Skin: No skin rashes noted, postoperative sites are well-appearing, no erythema or warmth, no discharge, no purulence appreciated. Good granulation tissue appreciated. MS/ Extremity: No evidence of trauma Neuro: Awake and alert Vital Signs: 10:11 BP 152 / 87; Pulse 83; Resp 17; Temp 98.2; Pulse Ox 100% ; Pain 2/10; ll1 11:23 BP 116 / 61; ec2 12:23 BP 122 / 64; Pulse 82; Resp 16; Pulse Ox 99% on R/A; hb 10:11 Pain Scale: Adult ll1 MDM: 10:03 Patient medically screened. ec2 10:22 ED course: Patient arrives today due to concern for low body temperature. Examination ec2 remarkable well-appearing nontoxic individual who was in no acute distress with reassuring vital signs and well-healing postoperative sites. Will obtain some basic labs to evaluate for organ dysfunction, will obtain a chest x-ray to evaluate for postoperative complication. Clinically I have a low suspicion for acute infection given the well-appearing with postoperative size, additionally have a low suspicion for JESSICA, renal dysfunction, electrolyte disturbances. I will investigate these with above work-up.. 10:40 ED course: CBC remarkable for anemia with a hemoglobin of 8.5. On external record ec2 review, patient with a single visit in 2016 and was not anemic. Today patient does not present with any complaints of anemia, is not short of breath is not lightheaded, has reassuring vital signs, does not complain of melena or loss of blood. Patient did have a recent large procedure and may be result of this. Additionally patient already known to be anemic and is on iron transfusion. Regardless I do not feel this needs to acutely be managed at this time.. 10:43 ED course: Chest x-ray independently reviewed and interpreted by me, shows no acute ec2 intrathoracic process.. 11:12 ED course: Metabolic profile was reassuring. Hyponatremia when corrected for blood ec2 sugar at 131. On reassessment patient is well-appearing and in no acute distress. Will discharge home and have him follow-up with primary care doctor and surgeon.. 11:27 Data reviewed: vital signs, nurses notes. ec2 07/12 10:16 Order name: CBC with Diff; Complete Time: 11:43 ec2 07/12 10:16 Order name: Basic Metabolic Panel; Complete Time: 11:10 ec2 07/12 10:16 Order name: LFT's; Complete Time: 11:10 ec2 07/12 11:42 Order name: CBC Smear Scan; Complete Time: 11:43 EDMS 07/12 10:16 Order name: XRAY CXR (1 view); Complete Time: 10:43 ec2 Administered Medications: No medications were administered Disposition Summary: 10/08/23 11:19 Discharge Ordered Notes: Location: Home ec2 Condition: Stable ec2 Diagnosis - Hyperglycemia, unspecified ec2 - Anemia, unspecified ec2 Followup: ec2 - With: Private Physician - When: As needed - Reason: Re-evaluation by your physician Discharge Instructions: - Discharge Summary Sheet ec2 - Hyperglycemia ec2 Forms: - Medication Reconciliation Form ec2 - Thank You Letter ec2 - Antibiotic Education ec2 - Prescription Opioid Use ec2 - Patient Portal Instructions ec2 - Leadership Thank You Letter ec2 Signatures: Dispatcher [employer] EDMS Karen Boyle RN RN Emelia Cheema RN RN ll1 Aníbal Castelan MD MD ec2 Corrections: (The following items were deleted from the chart) 10:48 10:43 ED course: Chest x-ray shows no acute intrathoracic process.. ec2 ec2 11:24 10:40 ED course: CBC remarkable for anemia with a hemoglobin of 8.5. On external record ec2 review, patient with a single visit in 2016 and was not anemic. Today patient does not present with any complaints of anemia, is not short of breath is not lightheaded, has reassuring vital signs, does not complain of melena or loss of blood. Patient did have a recent large procedure and may be result of this. Regardless I do not feel this needs to acutely be managed at this time.. ec2
--- NOTE | 2023-07-12 11:20 | ER ---
Nurse's Notes [facility] Name: Andrew Madrigal Age: 67 yrs Sex: Male : 1955 Arrival Date: 07/12/2023 Time: 09:59 Bed 4 Private MD: Diagnosis: Hyperglycemia, unspecified;Anemia, unspecified Presentation: 07/12 10:11 Chief complaint: Patient states: 07/01 had heart surgery with Dr. Garcia. Blood sugar has ll1 been 200-300's recently. Temperature has been decreasing over the past couple days 95.7 at home. Slight incisional pain to lower chest. Coronavirus screen: Client denies travel out of the [place] in the last 14 days. At this time, the client does not indicate any symptoms associated with coronavirus-19. Ebola Screen: Patient denies travel to an Ebola-affected area in the 21 days before illness onset. Initial Sepsis Screen: Does the patient meet any 2 criteria? No. Patient's initial sepsis screen is negative. Does the patient have a suspected source of infection? No. Patient's initial sepsis screen is negative. Risk Assessment: Do you want to hurt yourself or someone else? Patient reports no desire to harm self or others. Onset of symptoms was July 09, 2023. 10:11 Method Of Arrival: Ambulatory ll1 10:11 Acuity: BE 3 ll1 Triage Assessment: 10:14 General: Appears in no apparent distress. Behavior is calm, cooperative, appropriate ll1 for age. General: Reports low temperature and blood sugar being more elevated than usual. Pain: Complains of pain in chest incision Pain currently is 2 out of 10 on a pain scale. Quality of pain is described as aching. Historical: - Allergies: 10:11 No Known Allergies; ll1 - PMHx: 10:11 Diabetes - NIDDM; Hyperlipidemia; Hypertension; ll1 - PSHx: 10:11 open heart SX (Hypertension); ll1 - Immunization history:: Adult Immunizations up to date. - Social history:: Smoking status: Patient denies any tobacco usage or history of. Screenin:36 [place] ED Fall Risk Assessment (Adult) Score/Fall Risk Level 0 - 2 = Low Risk hb Oriented to surroundings, Maintained a safe environment. Abuse screen: Denies threats or abuse. Denies injuries from another. Nutritional screening: No deficits noted. Tuberculosis screening: No symptoms or risk factors identified. Assessment: 10:35 General: Appears in no apparent distress. Behavior is calm, cooperative. Pain: Pain hb currently is 2 out of 10 on a pain scale. Neuro: Level of Consciousness is awake, alert, obeys commands, Oriented to person, place, time, situation. Cardiovascular: Reports since CHEST WALL PAIN R/T SURGICAL SITE Patient's skin is warm and dry. Respiratory: Respiratory effort is even, unlabored, Respiratory pattern is regular, symmetrical. GI: No signs and/or symptoms were reported involving the gastrointestinal system. : No signs and/or symptoms were reported regarding the genitourinary system. EENT: No signs and/or symptoms were reported regarding the EENT system. Derm: Skin is pink, warm \T\ dry. Musculoskeletal: No signs and/or symptoms reported regarding the musculoskeletal system. 12:00 Reassessment: Patient appears in no apparent distress at this time. Patient and/or hb family updated on plan of care and expected duration. Pain level reassessed. Patient states symptoms have improved. Vital Signs: 10:11 BP 152 / 87; Pulse 83; Resp 17; Temp 98.2; Pulse Ox 100% ; Pain 2/10; ll1 11:23 BP 116 / 61; ec2 12:23 BP 122 / 64; Pulse 82; Resp 16; Pulse Ox 99% on R/A; hb 10:11 Pain Scale: Adult ll1 ED Course: 10:01 Patient arrived in ED. mr 10:03 Aníbal Castelan MD is Attending Physician. ec2 10:05 Arm band placed on Patient placed in an exam room, on a stretcher. ll1 10:14 Triage completed. ll1 10:16 Karen Boyle, ЮЛИЯ is Primary Nurse. hb 10:29 Inserted saline lock: 20 gauge in right forearm, using aseptic technique. Blood hb collected. 10:30 Patient has correct armband on for positive identification. Provided Education on: hb tests, wait times. 10:35 LFT's Sent. hb 10:35 Basic Metabolic Panel Sent. hb 10:35 CBC with Diff Sent. hb 10:36 XRAY CXR (1 view) In Process Unspecified. EDMS 12:23 No provider procedures requiring assistance completed. IV discontinued, intact, hb bleeding controlled, No redness/swelling at site. Administered Medications: No medications were administered Medication: 10:37 VIS not applicable for this client. hb Outcome: 11:19 Discharge ordered by . ec2 12:23 Discharged to home ambulatory, with significant other, 12:23 Condition: stable 12:23 Discharge instructions given to patient, Instructed on discharge instructions, follow up and referral plans. Demonstrated understanding of instructions, follow-up care, 12:24 Patient left the ED. hb Signatures: Dispatcher [employer] EDBarbie Mclean, Reg Reg mr Karen Boyle, RN RN Emelia Sánchez RN RN ll1 Aníbal Castelan MD MD ec2
[2023-07-12 11:42] LABS: Blood Morphology Comment NOT SEEN (NOT SEEN); Platelet Estimate ADEQ; White Blood Cell Scan OK (OK)
[2023-07-12 12:46] VITALS: TEMP 98.2
[2023-07-12 12:48] VITALS: BP 122/64; O2SAT 99
[2023-07-12] MEDS ORDERED: PANTOPRAZOLE 40 MG INJ ONE (14:09)
[2023-07-12] MEDS ORDERED: NA CHLORIDE 0.9% 250 ML ONE (14:09)
== END 2023-07-12 12:24 | disposition home or self-care (01) ==
LOC: ER 09:59
DX: E11.65 Type 2 diabetes mellitus with hyperglycemia (principal); D64.9 Anemia, unspecified; Z98.890 Other specified postprocedural states; Z95.1 Presence of aortocoronary bypass graft; I10 Essential (primary) hypertension; E78.5 Hyperlipidemia, unspecified
CPT/HCPCS: 85025; 80048; 36415; 80076; 71045; 99283; C9113; J7050